=== PATIENT | female | born 1960 | race Caucasian/White ===

== ENCOUNTER → 2016-04-14 | Outpatient (CLI) | payer MEDICARE | LOC: RAD 12:50 | PROVIDERS: ATTEND Family Medicine | DX: E04.1 Nontoxic single thyroid nodule (principal) | CPT/HCPCS: 76536 ==

== ENCOUNTER → 2016-05-14 | Outpatient (CLI) | payer MEDICARE | LOC: RAD 13:41 | PROVIDERS: ATTEND Family Medicine | DX: E04.1 Nontoxic single thyroid nodule (principal) | CPT/HCPCS: 78013; A9512; Q9969 ==

== ENCOUNTER → 2016-10-02 | Outpatient (CLI) | payer MEDICARE ==
--- NOTE | 2016-10-02 12:08 | RADIOLOGY REPORT (SQ) ---
EXAM DESCRIPTION: LUMBAR SPINE COMPLETE COMPLETED DATE/TIME: 10/02/2016 11:53 am REASON FOR STUDY: CERVICAL RADICULOPATHY; DJD LUMBOSACRAL M51.37 OTHER INTERVERTEBRAL DISC DEGENERA TION, LUMBOSACRAL R M54.12 RADICULOPATHY, CERVICAL REGION COMPARISON: None. NUMBER OF VIEWS: Five views including obliques. TECHNIQUE: AP, lateral, oblique, and sacral radiographic images acquired of the lumbar spine. LIMITATIONS: None. FINDINGS: MINERALIZATION: Normal. SEGMENTATION: 6 non rib-bearing lumbar vertebrae. The last well-defined segment looks non sacralized and is considered L5 for the purposes of today's study. ALIGNMENT: Mild grade 1 listhesis at L4-5. VERTEBRAE: Maintained height. No fracture or worrisome bone lesion. DISCS: Preserved height. No significant osteophytes or end plate irregularity. POSTERIOR ELEMENTS: No pars defect. Lower lumbar facet degenerative overgrowth. HARDWARE: None in the spine. PARASPINAL SOFT TISSUES: Probable phleboliths in the paraspinal soft tissues. PELVIS: Sclerosis along the SI joints, presumably degenerative. OTHER: No other significant finding. IMPRESSION: Lumbar spondylosis as above. TECHNICAL DOCUMENTATION: JOB ID: [id number] [employer]- All Rights Reserved
--- NOTE | 2016-10-02 16:46 | RADIOLOGY REPORT (SQ) ---
EXAM DESCRIPTION: C SP 4 OR 5 VIEWS COMPLETED DATE/TIME: 10/02/2016 11:53 am REASON FOR STUDY: CERVICAL RADICULOPATHY; DJD LUMBOSACRAL M51.37 OTHER INTERVERTEBRAL DISC DEGENERA TION, LUMBOSACRAL R M54.12 RADICULOPATHY, CERVICAL REGION COMPARISON: None. NUMBER OF VIEWS: Five views including obliques. TECHNIQUE: AP, lateral, obliques and odontoid radiographic images acquired of the cervical spine. LIMITATIONS: None. FINDINGS: MINERALIZATION: Normal. SEGMENTATION: Normal. ALIGNMENT: Normal. VERTEBRAE: Maintained height. No fracture or worrisome bone lesion. DISCS: Multilevel disc space narrowing with osteophytes. POSTERIOR ELEMENTS: Pedicles and facets are intact. No posterior arch defects. Facet arthropathy is present. FORAMINA: Narrowed at the levels of maximal disc and facet disease. HARDWARE: None in the spine. PARASPINAL SOFT TISSUES: Normal. OTHER: No other significant finding. IMPRESSION: SPONDYLOSIS WITHOUT BONE LESION OR FRACTURE. TECHNICAL DOCUMENTATION: JOB ID: [id number] [employer]- All Rights Reserved
== END ==
LOC: OD 11:29
PROVIDERS: ATTEND Family Medicine
DX: M51.37 Other intervertebral disc degeneration, lumbosacral region (principal); M54.12 Radiculopathy, cervical region
CPT/HCPCS: 72050; 72110

== ENCOUNTER 2017-09-09 20:20 | Emergency (ER) | payer MEDICARE ==
[2017-09-09 20:27] VITALS: BP 171/106
[2017-09-09 21:14] LABS: APPEARANCE,URINE SLIGHTLY-CLOUDY; BILIRUBIN,URINE NEGATIVE (NEGATIVE); COLOR,URINE YELLOW; GLUCOSE, URINE 50 mg/dL (NEGATIVE); KETONES,URINE NEGATIVE (NEGATIVE); LEUKOCYTE ESTERASE,URINE TRACE (NEGATIVE); NITRITE,URINE NEGATIVE (NEGATIVE); PROTEIN,URINE 30 mg/dL (NEGATIVE); URINE SPECIFIC GRAVITY 1.026
--- NOTE | 2017-09-10 00:21 | ER Document Report ---
ED GI/ - General Chief Complaint: Flank Pain Stated Complaint: BACK AND SIDE PAIN Time Seen by Provider: 09/10/17 00:04 Notes: 56-year-old female complaining of right flank pain radiating down to the right lower quadrant. History of kidney stones. Patient states it feels like kidney stone. Has had some chills today but no fever. No other significant problems. Denies any fever or abdominal pain other than some right flank pain at this time. TRAVEL OUTSIDE OF THE [place] IN LAST 30 DAYS: No - HPI Patient complains to provider of: Dysuria, Flank pain - Related Data Allergies/Adverse Reactions: Penicillins Allergy (Verified 09/09/17 20:24) Past Medical History - General Information source: Patient - Social History Smoking Status: Smoker,Current Status Unk Frequency of alcohol use: None Drug Abuse: None Lives with: Family Family History: Reviewed & Not Pertinent Review of Systems - Review of Systems Constitutional: denies: Fever, Malaise, Weakness Cardiovascular: denies: Chest pain, Palpitations, Heart racing Respiratory: Wheezing. denies: Cough, Hurts to breathe, Short of breath Gastrointestinal: See HPI, Abdominal pain, Nausea. denies: Diarrhea, Vomiting Genitourinary: Dysuria, Flank pain. denies: Burning Musculoskeletal: Back pain. denies: Muscle pain, Leg swelling, Ankle swelling Skin: denies: Dryness, Lesions, Lumps, Rash Neurological/Psychological: denies: Confusion, Weakness, Numbness Physical Exam - Vital signs Vitals: Temp Pulse Resp BP Pulse Ox 99.0 F 94 16 171/106 H 99 09/09/17 20:25 09/09/17 20:25 09/09/17 20:25 09/09/17 20:25 09/09/17 20:25 Interpretation: Normal - General General appearance: Appears well, Alert - Respiratory Respiratory status: No respiratory distress Chest status: Nontender Breath sounds: Normal Chest palpation: Normal - Cardiovascular Rhythm: Regular Heart sounds: Normal auscultation Murmur: No - Abdominal Inspection: Normal Distension: No distension Bowel sounds: Normal Tenderness: Nontender Organomegaly: No organomegaly - Back Back: Normal, Nontender - Extremities General upper extremity: Normal inspection, Nontender, Normal color, Normal ROM , Normal temperature General lower extremity: Normal inspection, Nontender, Normal color, Normal ROM , Normal temperature, Normal weight bearing. No: Emy's sign - Neurological Cognition: Normal Orientation: AAOx4 - Skin Skin Temperature: Warm Skin Moisture: Dry Skin Color: Normal Course - Re-evaluation Re-evalutation: 09/10/17 02:08 Well-appearing female in no acute distress. With history of kidney stones and questionable infection did CT scan. CT scan shows questionable pathological subacute fracture in the right acetabulum but patient is denying any significant pain at this time other than right flank pain which does not appear to be anywhere near the right hip. Treating with some antibiotics, pain medication. Will recommend close follow-up - Vital Signs Vital signs: Temp Pulse Resp BP Pulse Ox 99.0 F 94 16 171/106 H 99 09/09/17 20:25 09/09/17 20:25 09/09/17 20:25 09/09/17 20:25 09/09/17 20:25 - Laboratory Result Diagrams: 09/10/17 00:34 09/10/17 00:34 Laboratory results interpreted by me: 09/09/17 09/10/17 20:40 00:34 Chloride 110 H BUN 21 H Glucose 148 H Urine Protein 30 H Urine Glucose (UA) 50 H Urine Blood LARGE H Urine Urobilinogen 2.0 H Ur Leukocyte Esterase TRACE H Discharge - Discharge Clinical Impression: Right flank pain Urinary tract infection Qualifiers: Urinary tract infection type: site unspecified Hematuria presence: with hematuria Qualified Code(s): N39.0 - Urinary tract infection, site not specified ; R31.9 - Hematuria, unspecified; R31.9 - Hematuria, unspecified Condition: Stable Disposition: HOME, SELF-CARE Instructions: Urinary Tract Infection ([facility]) Additional Instructions: Your CT scan shows an abnormal hip joint which could represent a fracture. Please follow-up with your regular doctor or orthopedic surgery for further evaluation. Follow-up information for orthopedic surgery has been provided. Please take your antibiotics. Symptoms are getting worse, you did develop high- grade fevers, worsening pain or other symptoms please return for repeat evaluation Prescriptions: Ciprofloxacin HCl [Cipro 500 mg Tablet] 500 mg PO BID #10 tablet Hydrocodone/Acetaminophen [[place] 5-325 mg Tabs (6 Tab/ER Disp)] 0 tab PO Q6H PRN #1 dspk PRN Reason: For Breakthrough Pain Referrals: REILLY KASPER PA-C [Primary Care Provider] - Follow up as needed
[2017-09-10 00:42] LABS: ABSOLUTE BASOPHILS # (AUTO) 0.1 10^3/uL (0.0-0.2); ABSOLUTE EOSINOPHILS # (AUTO) 0.1 10^3/uL (0.0-0.6); ABSOLUTE LYMPHOCYTES (AUTO) 2.4 10^3/uL (0.5-4.7); ABSOLUTE MONOCYTES (AUTO) 0.4 10^3/uL (0.1-1.4); ABSOLUTE NEUT (AUTO) 4.8 10^3/uL (1.7-8.2); BASOPHILS % (AUTO) 0.7 % (0-2); EOSINOPHILS % (AUTO) 0.9 % (0-6); HEMATOCRIT 39.3 % (36.0-47.0); HEMOGLOBIN 13.3 g/dL (12.0-15.5); LYMPHOCYTES % (AUTO) 31.3 % (13-45); MEAN CORPUSCULAR HEMOGLOBIN 31.9 pg (27.0-33.4); MEAN CORPUSCULAR HGB CONC 33.8 g/dL (32.0-36.0); MEAN CORPUSCULAR VOLUME 95 fl (80-97); MONOCYTES % (AUTO) 5.4 % (3-13); PLATELET COUNT 179 10^3/uL (150-450); RED BLOOD COUNT 4.16 10^6/uL (3.72-5.28); RED CELL DISTRIBUTION WIDTH 13.8 % (11.5-14.0); SEGMENTED NEUTROPHILS % (AUTO) 61.7 % (42-78); TOTAL CELLS COUNTED % (AUTO) 100 %; WHITE BLOOD COUNT 7.8 10^3/uL (4.0-10.5)
[2017-09-10 00:56] LABS: ANION GAP 11 (5-19); BLOOD UREA NITROGEN 21 mg/dL (7-20); CALCIUM 9.2 mg/dL (8.4-10.2); CARBON DIOXIDE 23 mmol/L (22-30); CHLORIDE 110 mmol/L (98-107); GLUCOSE 148 mg/dL (75-110); POTASSIUM 3.8 mmol/L (3.6-5.0); SODIUM 144.2 mmol/L (137-145)
--- NOTE | 2017-09-10 01:20 | RADIOLOGY REPORT (SQ) ---
EXAM DESCRIPTION: CT ABDOMEN PELVIS WITHOUT IV CONTRAST COMPLETED DATE/TME: 09/10/2017 00:20 CLINICAL HISTORY: 56 years Female, right flank pain Comparison: None. Technique: No contrast. Coronal and sagittal reformat. This exam was performed according to our departmental dose-optimization program, which includes automated exposure control, adjustment of the mA and/or kV according to patient size and/or use of iterative reconstruction technique.[facility]: Dose Right [facility]: CareDose [facility]: Dose Right [facility]: Teradose 4D [facility]: Sport Ngin LIMITATIONS: None Findings: 0.5 cm likely calcified granuloma or vessel on end artifact of the right mid lung field on title manager view. Left basilar atelectasis or scar. Cholecystectomy clips. Mild bilateral sacroiliac osteoarthritis. Indeterminate probably benign 2.7 cm lytic well-defined lesion with sclerotic margination and thin zone of transition of the anterior column of the right acetabulum with cortical defects involving the intra-articular acetabulum. Atherosclerosis. Colonic diverticulosis. Normal appendix. Punctate left inferior renal stone. Subcentimeter exophytic likely benign right renal cyst. Unenhanced lower thorax, abdominopelvic structures, and musculoskeleton appear otherwise grossly unremarkable. Impression: Nondisplaced pathologic fracture of a 2.7 cm probably benign lytic lesion of the right acetabulum, indeterminate age. Else, no acute findings of the abdomen or pelvis.
[2017-09-10] MEDS ORDERED: HYDROCODONE/ACETAMINOPHEN 5-325 MG TABLET PO PRN (01:31)
[2017-09-10] MEDS ORDERED: CIPROFLOXACIN HCL 500 MG TABLET PO ONE (01:32)
[2017-09-10] MEDS ORDERED: HYDROCODONE/ACETAMINOPHEN 5-325 MG (6 TAB/ER DISP) PO PRN (02:26)
[2017-09-10] MEDS ORDERED: KETOROLAC TROMETHAMINE 60 MG/2 ML SDV IM ONE (02:27)
== END 2017-09-10 02:55 | disposition home or self-care (01) ==
LOC: ER 20:20
DX: N39.0 Urinary tract infection, site not specified (principal); R31.9 Hematuria, unspecified; R10.9 Unspecified abdominal pain; R68.83 Chills (without fever); R06.2 Wheezing; M54.9 Dorsalgia, unspecified; M84.459A Pathological fracture, hip, unspecified, initial encounter for fracture; Z87.442 Personal history of urinary calculi; Z88.0 Allergy status to penicillin
CPT/HCPCS: 99284; 96372; 36415; 87086; 85025; 87088; 80048; 81001; 87186; 74176; A9270 ×3; J1885

== ENCOUNTER 2017-09-17 18:07 | Inpatient (IN) | payer MEDICARE ==
[2017-09-17] MEDS ORDERED: NALOXONE HCL INJ 2 MG/2 ML DISP.SYRIN ONE ×3 (18:12→18:18)
[2017-09-17] MEDS ORDERED: ETOMIDATE INJ/PF 20 MG/10 ML SDV IV ONE ×2 (18:16→18:35)
[2017-09-17] MEDS ORDERED: PROPOFOL 1,000 MG/100 ML INFUS..BTL IV ONE (18:30)
[2017-09-17] MEDS ORDERED: NALOXONE HCL INJ 2 MG/2 ML DISP.SYRIN IV ONE (18:35)
[2017-09-17 18:41] LABS: ABSOLUTE EOSINOPHILS # (AUTO) 0.1 10^3/uL (0.0-0.6); ABSOLUTE LYMPHOCYTES (AUTO) 2.3 10^3/uL (0.5-4.7); ABSOLUTE MONOCYTES (AUTO) 0.3 10^3/uL (0.1-1.4); ABSOLUTE NEUT (AUTO) 6.8 10^3/uL (1.7-8.2); BASOPHILS % (AUTO) 0.4 % (0-2); EOSINOPHILS % (AUTO) 0.6 % (0-6); HEMATOCRIT 43.1 % (36.0-47.0); HEMOGLOBIN 14.5 g/dL (12.0-15.5); LYMPHOCYTES % (AUTO) 24.1 % (13-45); MEAN CORPUSCULAR HGB CONC 33.6 g/dL (32.0-36.0); MEAN CORPUSCULAR VOLUME 95 fl (80-97); MONOCYTES % (AUTO) 2.8 % (3-13); PLATELET COUNT 206 10^3/uL (150-450); RED BLOOD COUNT 4.52 10^6/uL (3.72-5.28); SEGMENTED NEUTROPHILS % (AUTO) 72.1 % (42-78); TOTAL CELLS COUNTED % (AUTO) 100 %; WHITE BLOOD COUNT 9.4 10^3/uL (4.0-10.5)
[2017-09-17 18:58] LABS: ALANINE AMINOTRANSFERASE 23 U/L (9-52); ALBUMIN 4.1 g/dL (3.5-5.0); ALCOHOL 156 mg/dL (NONE DETECTED); ALKALINE PHOSPHATASE 135 U/L (38-126); ANION GAP 18 (5-19); ASPARTATE AMINO TRANSFERASE 15 U/L (14-36); BILIRUBIN,DIRECT 0.3 mg/dL (0.0-0.4); BILIRUBIN,TOTAL 0.3 mg/dL (0.2-1.3); BLOOD UREA NITROGEN 12 mg/dL (7-20); CALCIUM 9.6 mg/dL (8.4-10.2); CARBON DIOXIDE 24 mmol/L (22-30); CHLORIDE 107 mmol/L (98-107); GLUCOSE 224 mg/dL (75-110); POTASSIUM 3.8 mmol/L (3.6-5.0); SODIUM 148.5 mmol/L (137-145); TOTAL PROTEIN 7.2 g/dL (6.3-8.2)
[2017-09-17 18:59] LABS: ACETAMINOPHEN < 10 ug/mL (10-30); SALICYLATE < 1.0 mg/dL (2.0-20.0)
[2017-09-17 19:01] LABS: APPEARANCE,URINE CLEAR; BILIRUBIN,URINE NEGATIVE (NEGATIVE); COLOR,URINE YELLOW; GLUCOSE, URINE >=500 mg/dL (NEGATIVE); KETONES,URINE TRACE mg/dL (NEGATIVE); LEUKOCYTE ESTERASE,URINE NEGATIVE (NEGATIVE); NITRITE,URINE POSITIVE (NEGATIVE); PROTEIN,URINE 30 mg/dL (NEGATIVE); URINE SPECIFIC GRAVITY 1.011; UROBILINOGEN,URINE NEGATIVE mg/dL (<2.0)
--- NOTE | 2017-09-17 19:10 | RADIOLOGY REPORT (SQ) ---
EXAM DESCRIPTION: CHEST SINGLE VIEW COMPLETED DATE/TIME: 09/17/2017 6:57 pm REASON FOR STUDY: intubation COMPARISON: None. EXAM PARAMETERS: NUMBER OF VIEWS: One view TECHNIQUE: Single supine frontal radiograph of the chest. RADIATION DOSE: N/A LIMITATIONS: None. FINDINGS: TEMPORARY SUPPORT DEVICES:ETT in expected location. NG tube courses below the left herman-d iaphragm in to the stomach. LUNGS AND PLEURA: There is an 8 mm nodularity at the right perihilar region. No consolidation. No s izable pleural effusion or pneumothorax on this supine view. MEDIASTINUM AND HILAR STRUCTURES: Contour normal. HEART AND VASCULAR STRUCTURES: Heart size normal. No overt vascular congestion. BONES: No acute findings. IMPRESSION: 8 mm nodularity at the right perihilar region. This can be better evaluated with [facility] olga CT chest. Support devices in expected locations. TECHNICAL DOCUMENTATION: JOB ID: [id number]-64 2010 [employer]- All Rights Reserved Reading location - IP/workstation name: [email or web address]
[2017-09-17] MEDS ORDERED: NORMAL SALINE 1000 ML 1,000 ML IV PRN (19:19)
[2017-09-17] MEDS ORDERED: SUCCINYLCHOLINE CHLORIDE INJ 200 MG/10 ML VIAL IV ONE (19:19)
[2017-09-17] MEDS ORDERED: PROPOFOL 1,000 MG/100 ML INFUS..BTL IV PRN (19:20)
[2017-09-17] MEDS ORDERED: KETAMINE HCL INJ 500 MG/10 ML VIAL ONE (19:23)
[2017-09-17] MEDS ORDERED: MIDAZOLAM HCL 50 MG/100 ML RTUINJ ONE (19:28)
[2017-09-17 20:28] LABS: ARTERIAL BLOOD BASE EXCESS -4.1 mmol/L; ARTERIAL BLOOD H2CO3 1.21 mmol/L (1.05-1.35); ARTERIAL BLOOD HCO3 21.3 mmol/L (20-26); ARTERIAL BLOOD O2 SATURATION 95.7 % (94-98); ARTERIAL BLOOD PCO2 40.2 mmHg (35-45); ARTERIAL BLOOD PH 7.34 (7.35-7.45); ARTERIAL BLOOD PO2 83.1 mmHg (80-100); ARTERIAL BLOOD TOTAL CO2 22.5 mmol/L (21-25)
[2017-09-17 20:33] LABS: ARTERIAL BLOOD FIO2 40%
[2017-09-17 21:13] LABS: URINE AMPHETAMINES SCREEN NEGATIVE; URINE BARBITURATES SCREEN NEGATIVE; URINE BENZODIAZEPINES SCREEN UNCONFIRMED POSITIVE; URINE COCAINE SCREEN NEGATIVE; URINE MARIJUANA (THC) SCREEN NEGATIVE; URINE METHADONE SCREEN NEGATIVE; URINE PHENCYCLIDINE SCREEN NEGATIVE
--- NOTE | 2017-09-17 21:44 | RADIOLOGY REPORT (SQ) ---
EXAM DESCRIPTION: CT HEAD WITHOUT COMPLETED DATE/TIME: 09/17/2017 9:33 pm REASON FOR STUDY: ams COMPARISON: None. TECHNIQUE: Axial images acquired through the brain without intravenous contrast. Images reviewed wi th bone, brain and subdural windows. Additional sagittal and coronal reconstructions were generated. Images stored on PACS. All CT scanners at this facility use dose modulation, iterative reconstruction, and/or weight based d osing when appropriate to reduce radiation dose to as low as reasonably achievable (ALARA). [facility]: Dose Right [facility]: CareDose [facility]: Dose Right [facility]: Teradose 4D [facility]: [employer] RADIATION DOSE: CT Rad equipment meets quality standard of care and radiation dose reduction techniq ues were employed. CTDIvol: 53.2 mGy. DLP: 964 mGy-cm. mGy. LIMITATIONS: None. FINDINGS: VENTRICLES: Normal size and contour. CEREBRUM: No masses. No hemorrhage. No midline shift. No evidence for acute infarction. Normal gra y/white matter differentiation. No areas of low density in the white matter. CEREBELLUM: No masses. No hemorrhage. No alteration of density. No evidence for acute infarction. EXTRAAXIAL SPACES: No fluid collections. No masses. ORBITS AND GLOBE: No intra- or extraconal masses. Normal contour of globe without masses. CALVARIUM: No fracture. PARANASAL SINUSES: Scattered ethmoid airspace opacities and foamy secretions within the nasopharynx a re not an unexpected finding in the setting of intubation. SOFT TISSUES: No mass or hematoma. OTHER: No other significant finding. IMPRESSION: NORMAL BRAIN CT WITHOUT CONTRAST. EVIDENCE OF ACUTE STROKE: NO. COMMENT: Quality ID # [id number]: Final reports with documentation of one or more dose reduction techniques (e.g., Automated exposure control, adjustment of the mA and/or kV according to patient size, use of iterative reconstruction technique) TECHNICAL DOCUMENTATION: JOB ID: [id number] [employer]- All Rights Reserved Reading location - IP/workstation name: [email or web address]
[2017-09-17] MEDS ORDERED: LIDOCAINE 1% INJ-PF (10 MG/ML) 30 ML SDV INJ ONE (22:20)
--- NOTE | 2017-09-17 22:20 | ER Document Report ---
ED General - General Chief Complaint: Overdose Stated Complaint: POSSIBLE OVERDOSE Time Seen by Provider: 09/17/17 18:31 Mode of Arrival: Medic Notes: Patient brought to the emergency department by EMS for possible overdose. EMS states that the patient was found unresponsive with a bottle of oxycodone next to her. She does have laceration to her left wrist. Patient's son contacted EMS. He states that that she slit her wrist tonight. She had been drinking alcohol. She drank 1/5 of rum. He found her unresponsive. On arrival to the ED , patient has GCS of 3. Given 6mg of narcan without change. Intubation performed. TRAVEL OUTSIDE OF THE [place] IN LAST 30 DAYS: No - HPI Onset: Just prior to arrival Onset/Duration: Sudden Associated symptoms: None Similar symptoms previously: No Recently seen / treated by doctor: No - Related Data Allergies/Adverse Reactions: Penicillins Allergy (Verified 09/17/17 18:18) Past Medical History - Social History Smoking Status: Current Every Day Smoker Frequency of alcohol use: Social Family History: Reviewed & Not Pertinent Patient has suicidal ideation: Yes Patient has homicidal ideation: Yes - Past Medical History Cardiac Medical History: Reports: Hx Hypertension Endocrine Medical History: Reports: Hx Diabetes Mellitus Type 2 Renal/ Medical History: Denies: Hx Peritoneal Dialysis Review of Systems - Review of Systems -: Yes ROS unobtainable due to patient's medical condition Physical Exam - Vital signs Vitals: Resp Pulse Ox 17 97 09/17/17 18:10 09/17/17 18:10 Interpretation: Normal - Notes Notes: PHYSICAL EXAMINATION: GENERAL: Unresponsive. GCS of 3. HEAD: Atraumatic EYES: Pupils 2mm and equal round and reactive to light. ENT: Nares patent, oropharynx clear without exudates. Moist mucous membranes. NECK: Normal range of motion, supple without lymphadenopathy LUNGS: Breath sounds clear to auscultation bilaterally and equal. No wheezes rales or rhonchi. HEART: Regular rate and rhythm without murmurs ABDOMEN: Soft, nontender, nondistended abdomen. No guarding, no rebound. No masses appreciated. Female : deferred Musculoskeletal: Normal range of motion, no pitting or edema. No cyanosis. NEUROLOGICAL: Corneal and gag reflexes. Moving all 4 extremities. SKIN: 4cm laceration to the left wrist. 3cm laceration to left wrist. Course - Re-evaluation Re-evalutation: 09/17/17 23:34 Labs and imaging obtained. CT of the head was done and does not show an acute process. No signs of infection found. Patient's EtOH level is elevated. No signs of opiates in the patient's urine. Patient's urine is significant for benzos. I contacted the hospitalist for admission. Patient is currently intubated and stable. 09/18/17 00:13 Patient has 2 lacerations to the left wrist. One is 4cm the other is 3cm. Both superficial. Wounds sutured. No complications. - Vital Signs Vital signs: Temp Pulse Resp BP Pulse Ox 19 125/76 100 09/18/17 00:01 09/18/17 00:01 09/18/17 00:01 - Laboratory Result Diagrams: 09/17/17 18:14 09/17/17 18:14 Laboratory results interpreted by me: 09/17/17 09/17/17 09/17/17 18:14 18:14 18:44 Monocytes % 2.8 L ABG pH Sodium 148.5 H Glucose 224 H Alkaline Phosphatase 135 H Urine Protein 30 H Urine Glucose (UA) >=500 H Urine Ketones TRACE H Urine Nitrite POSITIVE H Salicylates < 1.0 L Acetaminophen < 10 L 09/17/17 19:41 Monocytes % ABG pH 7.34 L Sodium Glucose Alkaline Phosphatase Urine Protein Urine Glucose (UA) Urine Ketones Urine Nitrite Salicylates Acetaminophen - EKG Interpretation by Me Additional EKG results interpreted by me: 09/17/17 22:27 EKG: Ventricular rate 79, WI interval 84, QRS duration 88, QTc 505, normal sinus rhythm, no ischemic changes. Procedures - Intubation Orotracheal Airway evaluation: Normal anatomy Mallampati Classification: Class 1 Medications: Etomidate, Succinylcholine Intubation method: Orotracheal Blade type: Natali, Other - glidescope Blade size: 3 Equipment used: Glidescope ETT size: 7.5 ETT secured at: Gums Breath Sounds after Intubation: Equal End tidal CO2 confirmed: Yes Post Intubation Xray: Yes Intubation Complications: No complications - Laceration/Wound Repair Left Wrist Wound length (cm): 4 - second laceration is 3cm in length Wound's Depth, Shape: Superficial Laceration pre-procedure: Sterile drapes applied, Shur-Clens applied Anesthetic type: 1% Lidocaine Volume Anesthetic (mLs): 10 Wound explored: Clean, No foreign body removed Irrigated w/ Saline (mLs): 500 Wound Debrided: Minimal Wound Repaired With: Sutures Suture Size/Type: 4:0 Number of Sutures: 18 Layer Closure?: No Post-procedure NV exam normal: Yes Complications: No Critical Care Note - Critical Care Note Total time excluding time spent on procedures (mins): 30 Discharge - Discharge Clinical Impression: Altered mental status Qualifiers: Altered mental status type: unspecified Qualified Code(s): R41.82 - Altered mental status, unspecified Condition: Good Disposition: ADMITTED INPATIENT Admitting Provider: Hospitalist Unit Admitted: ICU
[2017-09-17] MEDS ORDERED: GLUCAGON,HUMAN RECOMB 1 MG INJ SUBCUT PRN (22:37)
[2017-09-17] MEDS ORDERED: DEXTROSE 40% GEL 15 GM TUBE PO PRN ×4 (22:37→22:43)
[2017-09-17] MEDS ORDERED: DEXTROSE 50%-WATER 25 GM/50 ML DISP.SYRIN IV PRN ×4 (22:37→22:43)
[2017-09-17] MEDS ORDERED: INSULIN LISPRO 100 UNIT/ML 3 ML VIAL SUBCUT PRN (22:43)
[2017-09-17] MEDS ORDERED: GLUCAGON,HUMAN RECOMB 1 MG INJ IM PRN (22:43)
--- NOTE | 2017-09-17 22:59 | EKG REPORT ---
SEVERITY:- BORDERLINE ECG - SINUS OR ECTOPIC ATRIAL RHYTHM SHORT OK INTERVAL, ACCELERATED AV CONDUCTION BORDERLINE PROLONGED QT INTERVAL : Confirmed by: Safia Ford MD 17-Sep-2017 22:59:09
[2017-09-17] MEDS: NORMAL SALINE 1000 ML 1,000 ML IV PRN (23:16)
--- NOTE | 2017-09-17 23:27 | PDOC H&P ---
History of Present Illness Admission Date/PCP: 09/17/17 22:30 REILLY KASPER PA-C History of Present Illness: YAYO WIN is a 56 year old female patient with past medical history of bipolar disorder, hypertension and diabetes mellitus by EMS unresponsive. Since patient is intubated and on mechanical ventilation she is not source of history but history is obtained from ER attending and her son who is in the room during my encounter. Patient found unresponsive and sliced her left wrist at 3 places with suicidal intention. She drank 1/5 of rum and empty bottle of Percocet which was filled August 29. Patient was given several doses of Narcan but failed to respond and patient emergently intubated to protect her airway. Patient is in grief recently lost her son. Further detailed history and review of systems unobtainable Past Medical History Cardiac Medical History: Reports: Hypertension Endocrine Medical History: Reports: Diabetes Mellitus Type 2 Psychiatric Medical History: Reports: Depression Social History Smoking Status: Current Every Day Smoker Frequency of Alcohol Use: Heavy Hx Recreational Drug Use: No Hx Prescription Drug Abuse: Yes Family History Family History: Reviewed & Not Pertinent, Hypertension, Other - Mental illness Parental Family History Reviewed: Yes Children Family History Reviewed: Yes Sibling(s) Family History Reviewed.: Yes Medication/Allergy Home Medications: Ciprofloxacin HCl [Cipro 500 mg Tablet] 500 mg PO BID #10 tablet 09/10/17 Hydrocodone/Acetaminophen [[place] 5-325 mg Tabs (6 Tab/ER Disp)] 0 tab PO Q6H PRN #1 dspk 09/10/17 Allergies/Adverse Reactions: Penicillins Allergy (Verified 09/17/17 18:18) Review of Systems ROS unobtainable: Due to mental status Physical Exam Vital Signs: Temp Pulse Resp BP Pulse Ox 14 105/64 97 09/17/17 22:16 09/17/17 22:16 09/17/17 22:16 General appearance: PRESENT: no acute distress Head exam: PRESENT: atraumatic, normocephalic Respiratory exam: PRESENT: clear to auscultation kelechi. ABSENT: rales, rhonchi, wheezes Cardiovascular exam: PRESENT: tachycardia GI/Abdominal exam: PRESENT: normal bowel sounds, soft. ABSENT: distended, guarding, mass, organolmegaly, rebound, tenderness Extremities exam: PRESENT: other - Laceration of three places on her left wrist Results Impressions: Chest X-Ray 09/17/17 18:32 IMPRESSION: 8 mm nodularity at the right perihilar region. This can be better evaluated with dedicated CT chest. Support devices in expected locations. Head CT 09/17/17 18:32 IMPRESSION: NORMAL BRAIN CT WITHOUT CONTRAST. EVIDENCE OF ACUTE STROKE: NO. Assessment & Plan - Diagnosis (1) Unresponsive Is this a current diagnosis for this admission?: Yes Plan: Patient found unresponsive after she intoxicated with alcohol combined with benzodiazepine. Patient intubated and on mechanical ventilation to protect her airway. (2) Suicidal intent Is this a current diagnosis for this admission?: Yes Plan: Patient has underlying bipolar disorder and grief after recently lost her son. We will consult psychiatry. (3) Hypertension Qualifiers: Hypertension type: essential hypertension Qualified Code(s): I10 - Essential (primary) hypertension Is this a current diagnosis for this admission?: Yes Plan: We will continue her home medication (4) Diabetes mellitus type 2 in nonobese Is this a current diagnosis for this admission?: Yes Plan: It has been started on sliding scale.
[2017-09-18] MEDS ORDERED: PROPOFOL 1,000 MG/100 ML INFUS..BTL IV ONE (00:51)
--- NOTE | 2017-09-18 02:43 | RADIOLOGY REPORT (SQ) ---
EXAM DESCRIPTION: XR CHEST 1 VIEW COMPLETED DATE/TME: 09/18/2017 02:23 CLINICAL HISTORY: cental line placement COMPARISON: 09/18/2019 FINDINGS: Single frontal view of the chest. Endotracheal tube with tip 4 cm above the boyd. NG tube with tip below the diaphragm. Left subclavian central venous catheter with tip overlying the expected region of the SVC. Leads overlie the chest. Low lung volumes. No consolidation, pneumothorax, or pleural effusion. Osseous structures are stable. Upper abdominal soft tissues are unremarkable. IMPRESSION: 1. Left subclavian central venous catheter with tip in the SVC. Otherwise stable appearance of the chest.
[2017-09-18] MEDS ORDERED: NORMAL SALINE INJ/PF 0.9% 10 ML SDV IV PRN (03:22)
[2017-09-18] MEDS: PROPOFOL 1,000 MG/100 ML INFUS..BTL IV PRN ×5 (03:59→22:42)
[2017-09-18] MEDS: MIDAZOLAM HCL 50 MG/100 ML RTUINJ IV PRN ×4 (04:01→22:42)
--- NOTE | 2017-09-18 05:10 | OPERATIVE REPORT E ---
Operative Report NAME: YAYO WIN : 1960 AGE: 56Y DATE OF SURGERY: 09/18/2017 ROOM: 601 PREOPERATIVE DIAGNOSIS: POOR VEINS FOR INTRAVENOUS ACCESS. POSTOPERATIVE DIAGNOSIS: POOR VEINS FOR INTRAVENOUS ACCESS. PROCEDURE: Placement of left subclavian vein triple-lumen catheter. SURGEON: JEMIMA MARQUEZ M.D. ANESTHESIA: Local. INDICATION: This is a 56-year-old female, who is intubated and needed IV access. The nurses have been trying to place a second IV and the first IV is tenuous at best. DESCRIPTION OF PROCEDURE: After adequate IV sedation with propofol, the left upper neck and chest were then prepped and draped in the usual sterile fashion. The patient was placed in Trendelenburg position. The left subclavian vein was then punctured and guidewire passed through the needle and towards the area of the superior vena cava. Insertion site was then dilated and a triple-lumen catheter inserted through the guidewire towards the superior vena cava to a distance of about 17 cm. All 3 ports aspirated blood easily and instilled saline easily. The catheter was then anchored to the skin with 3-0 silk and Biopatch placed that insertion site. Transparent sterile dressing was placed the Biopatch and catheter. The patient tolerated the procedure well. Chest x-ray will be performed to confirm placement and make sure there is no pneumothorax. DICTATING PHYSICIAN: JEMIMA MARQUEZ M.D. [id number] PHY#: [id number] ID: [id number] JOB#: [id number] ACCT: [id number] cc:JEMIMA MARQUEZ M.D. >
[2017-09-18 06:24] LABS: ABSOLUTE MONOCYTES (AUTO) 0.5 10^3/uL (0.1-1.4); ABSOLUTE NEUT (AUTO) 5.5 10^3/uL (1.7-8.2); BASOPHILS % (AUTO) 0.4 % (0-2); EOSINOPHILS % (AUTO) 0.4 % (0-6); LYMPHOCYTES % (AUTO) 24.4 % (13-45); MEAN CORPUSCULAR HEMOGLOBIN 32.1 pg (27.0-33.4); MEAN CORPUSCULAR HGB CONC 33.9 g/dL (32.0-36.0); MEAN CORPUSCULAR VOLUME 95 fl (80-97); MONOCYTES % (AUTO) 5.7 % (3-13); PLATELET COUNT 159 10^3/uL (150-450); RED BLOOD COUNT 3.58 10^6/uL (3.72-5.28); RED CELL DISTRIBUTION WIDTH 13.6 % (11.5-14.0); SEGMENTED NEUTROPHILS % (AUTO) 69.1 % (42-78); TOTAL CELLS COUNTED % (AUTO) 100 %
[2017-09-18 06:25] LABS: ARTERIAL BLOOD BASE EXCESS 0 mmol/L; ARTERIAL BLOOD FIO2 30%; ARTERIAL BLOOD H2CO3 1.06 mmol/L (1.05-1.35); ARTERIAL BLOOD HCO3 23.6 mmol/L (20-26); ARTERIAL BLOOD O2 SATURATION 95.6 % (94-98); ARTERIAL BLOOD PCO2 35.1 mmHg (35-45); ARTERIAL BLOOD PH 7.45 (7.35-7.45); ARTERIAL BLOOD PO2 74.7 mmHg (80-100); ARTERIAL BLOOD TOTAL CO2 24.7 mmol/L (21-25); HEMOGLOBIN 11.5 g/dL (12.0-15.5)
[2017-09-18 06:32] LABS: ALANINE AMINOTRANSFERASE 24 U/L (9-52); ALBUMIN 2.8 g/dL (3.5-5.0); ALKALINE PHOSPHATASE 109 U/L (38-126); ANION GAP 8 (5-19); ASPARTATE AMINO TRANSFERASE 13 U/L (14-36); BILIRUBIN,DIRECT 0.3 mg/dL (0.0-0.4); BILIRUBIN,TOTAL 0.3 mg/dL (0.2-1.3); BLOOD UREA NITROGEN 11 mg/dL (7-20); CALCIUM 8.3 mg/dL (8.4-10.2); CARBON DIOXIDE 25 mmol/L (22-30); CHLORIDE 113 mmol/L (98-107); GLUCOSE 119 mg/dL (75-110); POTASSIUM 3.7 mmol/L (3.6-5.0); TOTAL PROTEIN 5.4 g/dL (6.3-8.2)
[2017-09-18] MEDS: NORMAL SALINE 1000 ML 1,000 ML IV PRN ×2 (08:05→15:52)
[2017-09-18] MEDS: PANTOPRAZOLE SODIUM 40 MG VIAL IV SCH (09:04)
[2017-09-18] MEDS: ENOXAPARIN SODIUM INJ 40 MG/0.4 ML DISP.SYRIN SUBCUT SCH (09:04)
[2017-09-18] MEDS ORDERED: LEVALBUTEROL HCL NEB 0.63 MG/3 ML AMPUL NEB PRN (11:41)
[2017-09-18] MEDS ORDERED: NYSTATIN CREAM 15 GM TP ONE (12:30)
[2017-09-18] MEDS: IPRATROPIUM/ALBUTEROL 0.5-2.5 MG/3 ML AMPUL NEB SCH ×2 (14:02→20:16)
--- NOTE | 2017-09-18 15:30 | PDOC CONSULTATION ---
Consultation Consult Date: 09/18/17 Attending physician:: PAYTON SINGH Consult reason:: Respiratory failure acute History of Present Illness Admission Date/PCP: 09/17/17 22:30 REILLY KASPER PA-C History of Present Illness: YAYO WIN is a 56 year old female,was found unresponsive by baker paint was subsequently intubated apparently she had taken the balance of her Percocets that were in a bottle along with a Coleman of alcohol she has had several episodes in the past with attempted suicides due to bipolar disorder and depression this is was exacerbated by the recent loss of her son stated above the patient is currently intubated and sedated in the ICU. Past Medical History Cardiac Medical History: Reports: Hypertension Endocrine Medical History: Reports: Diabetes Mellitus Type 2 Psychiatric Medical History: Reports: Depression - situational Social History Information Source: Relative, [facility] Records Smoking Status: Smoker,Current Status Unk Passive smoke exposure as: Both Frequency of Alcohol Use: Heavy Hx Recreational Drug Use: No - unable to answer Drugs: None Hx Prescription Drug Abuse: No Have you had any respiratory illnesses as a child?: No Have you travelled outside of [place] in the past 12 months?: No Family History Parental Family History Reviewed: No Children Family History Reviewed: No Sibling(s) Family History Reviewed.: No Medication/Allergy Home Medications: Gabapentin [Neurontin 400 mg Capsule] 800 mg PO Q6 09/18/17 Lisinopril/Hydrochlorothiazide [Lisinopril-Hctz 20-12.5 mg Tab] 1 tab PO Q12 04/07 Metformin HCl [Glucophage 500 mg Tablet] 1,000 mg PO BIDBS 09/18/17 Allergies/Adverse Reactions: Penicillins Allergy (Verified 09/17/17 18:18) Review of Systems ROS unobtainable: Due to endotracheal tube, Due to mental status Physical Exam Vital Signs: Temp Pulse Resp BP Pulse Ox 98.8 F 77 14 139/86 H 99 09/18/17 06:12 09/18/17 01:01 09/18/17 06:12 09/18/17 06:12 09/18/17 06:12 Intake & Output 09/17/17 09/18/17 09/19/17 06:59 06:59 06:59 Intake Total 0 Output Total 185 Balance -185 Weight 89.3 kg General appearance: PRESENT: no acute distress, disheveled, obese, well- developed, well-nourished. ABSENT: cooperative Head exam: PRESENT: normocephalic Eye exam: PRESENT: conjunctiva pale. ABSENT: EOMI, nystagmus, periorbital swelling, scleral icterus Mouth exam: PRESENT: dry mucosa, neck supple, tongue midline, other - ET tube in place Neck exam: ABSENT: carotid bruit, JVD, lymphadenopathy, thyromegaly, tracheal deviation, tracheostomy Respiratory exam: PRESENT: decreased breath sounds, prolonged expiratory phas, rhonchi, unlabored. ABSENT: retraction, stridor Cardiovascular exam: PRESENT: RRR, +S1, +S2 Pulses: PRESENT: normal radial pulses GI/Abdominal exam: PRESENT: hypoactive bowel sounds, soft Gentrourinary exam: PRESENT: indwelling catheter Extremities exam: ABSENT: clubbing, joint swelling, pedal edema Musculoskeletal exam: ABSENT: ambulatory, deformity, dislocation Neurological exam: ABSENT: awake Skin exam: PRESENT: dry, warm Results Laboratory Results: 09/18/17 06:00 09/18/17 06:00 09/18/17 09/18/17 09/18/17 06:00 06:00 06:00 WBC 8.0 RBC 3.58 L Hgb 11.5 L D Hct 34.0 L MCV 95 MCH 32.1 MCHC 33.9 RDW 13.6 Plt Count 159 Seg Neutrophils % 69.1 Lymphocytes % 24.4 Monocytes % 5.7 Eosinophils % 0.4 Basophils % 0.4 Absolute Neutrophils 5.5 Absolute Lymphocytes 2.0 Absolute Monocytes 0.5 Absolute Eosinophils 0.0 Absolute Basophils 0.0 Carbonic Acid 1.06 HCO3/H2CO3 Ratio 22:1 ABG pH 7.45 ABG pCO2 35.1 ABG pO2 74.7 L ABG HCO3 23.6 ABG O2 Saturation 95.6 ABG Base Excess 0 FiO2 30% Sodium 146.0 H Potassium 3.7 Chloride 113 H Carbon Dioxide 25 Anion Gap 8 BUN 11 Creatinine 0.67 Est GFR ( Amer) > 60 Est GFR (Non-Af Amer) > 60 Glucose 119 H Calcium 8.3 L Total Bilirubin 0.3 AST 13 L ALT 24 Alkaline Phosphatase 109 Total Protein 5.4 L Albumin 2.8 L Impressions: Head CT 09/17/17 18:32 IMPRESSION: NORMAL BRAIN CT WITHOUT CONTRAST. EVIDENCE OF ACUTE STROKE: NO. Chest X-Ray 09/18/17 02:23 IMPRESSION: 1. Left subclavian central venous catheter with tip in the SVC. Otherwise stable appearance of the chest. Assessment & Plan - Diagnosis (1) Altered mental status Qualifiers: Altered mental status type: unspecified Qualified Code(s): R41.82 - Altered mental status, unspecified Is this a current diagnosis for this admission?: Yes Plan: Currently unresponsive during sedation vacation will continue to support (2) Hypertension Qualifiers: Hypertension type: essential hypertension Qualified Code(s): I10 - Essential (primary) hypertension Is this a current diagnosis for this admission?: Yes Plan: Stable at this time (3) Suicidal intent Is this a current diagnosis for this admission?: Yes Plan: Several prior attempts post before this 1 exacerbated by this her son's recent - Time Total Critical Time (Minutes): 55
[2017-09-18] MEDS ORDERED: NORMAL SALINE 1000 ML 1,000 ML IV ONE (16:00)
[2017-09-18] MEDS ORDERED: LISINOPRIL 10 MG TABLET GT ONE (17:45)
[2017-09-18] MEDS ORDERED: HYDROCHLOROTHIAZIDE 12.5 MG CAPSULE GT ONE (17:45)
--- NOTE | 2017-09-18 18:12 | PDOC PROGRESS REPORT ---
Subjective Progress Note for:: 09/18/17 Subjective:: No adverse events overnight. She remains sedated and intubated. Her vital signs been stable. She is actually a little bit hypertensive today and we have restarted some of her medicines down the OG tube. She has been stable on the ventilator for a respiratory standpoint. Reason For Visit: UNRESPONSIVE Physical Exam Vital Signs: Temp Pulse Resp BP Pulse Ox 99.9 F 63 17 150/88 H 99 09/18/17 15:00 09/18/17 14:02 09/18/17 15:00 09/18/17 14:42 09/18/17 16:46 Intake & Output 09/17/17 09/18/17 09/19/17 06:59 06:59 06:59 Intake Total 0 Output Total 185 345 Balance -185 -345 Weight 89.3 kg General appearance: PRESENT: no acute distress, obese, well-developed, other - Dated, intubated Respiratory exam: PRESENT: clear to auscultation kelechi. ABSENT: rales, rhonchi, wheezes Cardiovascular exam: PRESENT: RRR. ABSENT: diastolic murmur, rubs, systolic murmur GI/Abdominal exam: PRESENT: normal bowel sounds, soft. ABSENT: distended, guarding, mass, organolmegaly, rebound, tenderness Extremities exam: ABSENT: clubbing, pedal edema Musculoskeletal exam: PRESENT: normal inspection. ABSENT: deformity Neurological exam: PRESENT: other - Sedated, intubated Results Laboratory Results: 09/18/17 06:00 09/18/17 06:00 09/18/17 09/18/17 09/18/17 06:00 06:00 06:00 WBC 8.0 RBC 3.58 L Hgb 11.5 L D Hct 34.0 L MCV 95 MCH 32.1 MCHC 33.9 RDW 13.6 Plt Count 159 Seg Neutrophils % 69.1 Lymphocytes % 24.4 Monocytes % 5.7 Eosinophils % 0.4 Basophils % 0.4 Absolute Neutrophils 5.5 Absolute Lymphocytes 2.0 Absolute Monocytes 0.5 Absolute Eosinophils 0.0 Absolute Basophils 0.0 Carbonic Acid 1.06 HCO3/H2CO3 Ratio 22:1 ABG pH 7.45 ABG pCO2 35.1 ABG pO2 74.7 L ABG HCO3 23.6 ABG O2 Saturation 95.6 ABG Base Excess 0 FiO2 30% Sodium 146.0 H Potassium 3.7 Chloride 113 H Carbon Dioxide 25 Anion Gap 8 BUN 11 Creatinine 0.67 Est GFR ( Amer) > 60 Est GFR (Non-Af Amer) > 60 Glucose 119 H Calcium 8.3 L Total Bilirubin 0.3 AST 13 L ALT 24 Alkaline Phosphatase 109 Total Protein 5.4 L Albumin 2.8 L Impressions: Head CT 09/17/17 18:32 IMPRESSION: NORMAL BRAIN CT WITHOUT CONTRAST. EVIDENCE OF ACUTE STROKE: NO. Chest X-Ray 09/18/17 02:23 IMPRESSION: 1. Left subclavian central venous catheter with tip in the SVC. Otherwise stable appearance of the chest. Assessment & Plan - Diagnosis (1) Intentional drug overdose Qualifiers: Encounter type: initial encounter Qualified Code(s): T50.902A - Poisoning by unspecified drugs, medicaments and biological substances, intentional self- harm, initial encounter Is this a current diagnosis for this admission?: Yes Plan: She was found next to an empty bottle of oxycodone, she had benzodiazepines in her system, and she also was positive for alcohol. She had to lacerations on her left wrist, neither of which was deep enough to have a blood vessel. She is on the ventilator because she could not protect her airway. We will let the substances wash out of her system, and then will try to wean her from the vent and extubate her. Once that is done, she will have to be involuntarily committed. - Time Time Spent with patient: 35 or more minutes Total Critical Time (Minutes): 35
[2017-09-18] MEDS ORDERED: HYDROCHLOROTHIAZIDE 25 MG TABLET ONE (18:18)
[2017-09-18] MEDS: ACETAMINOPHEN SOLN 325 MG/10.15 ML UDCUP GT PRN (18:51)
[2017-09-18] MEDS ORDERED: CEFTRIAXONE 1 GM/D5W RTU 1 GM/50 ML RTUPB IV ONE ×2 (18:56→19:00)
[2017-09-18] MEDS: NYSTATIN CREAM 15 GM TP SCH (22:41)
[2017-09-19] MEDS: IPRATROPIUM/ALBUTEROL 0.5-2.5 MG/3 ML AMPUL NEB SCH ×4 (01:50→19:22)
[2017-09-19] MEDS: MIDAZOLAM HCL 50 MG/100 ML RTUINJ IV PRN ×2 (05:29→17:38)
[2017-09-19] MEDS: PROPOFOL 1,000 MG/100 ML INFUS..BTL IV PRN ×6 (05:29→22:31)
[2017-09-19 06:14] LABS: ARTERIAL BLOOD BASE EXCESS -4.1 mmol/L; ARTERIAL BLOOD H2CO3 1.01 mmol/L (1.05-1.35); ARTERIAL BLOOD HCO3 19.9 mmol/L (20-26); ARTERIAL BLOOD O2 SATURATION 95.5 % (94-98); ARTERIAL BLOOD PCO2 33.5 mmHg (35-45); ARTERIAL BLOOD PH 7.39 (7.35-7.45); ARTERIAL BLOOD PO2 77.2 mmHg (80-100); ARTERIAL BLOOD TOTAL CO2 20.9 mmol/L (21-25)
[2017-09-19 06:18] LABS: ARTERIAL BLOOD FIO2 30
[2017-09-19 06:22] LABS: ABSOLUTE LYMPHOCYTES (AUTO) 1.3 10^3/uL (0.5-4.7); ABSOLUTE MONOCYTES (AUTO) 0.6 10^3/uL (0.1-1.4); ABSOLUTE NEUT (AUTO) 8.7 10^3/uL (1.7-8.2); BASOPHILS % (AUTO) 0.4 % (0-2); EOSINOPHILS % (AUTO) 0.2 % (0-6); HEMATOCRIT 33.6 % (36.0-47.0); HEMOGLOBIN 11.3 g/dL (12.0-15.5); LYMPHOCYTES % (AUTO) 11.7 % (13-45); MEAN CORPUSCULAR HEMOGLOBIN 32.2 pg (27.0-33.4); MEAN CORPUSCULAR HGB CONC 33.5 g/dL (32.0-36.0); MEAN CORPUSCULAR VOLUME 96 fl (80-97); PLATELET COUNT 155 10^3/uL (150-450); RED BLOOD COUNT 3.49 10^6/uL (3.72-5.28); RED CELL DISTRIBUTION WIDTH 13.6 % (11.5-14.0); SEGMENTED NEUTROPHILS % (AUTO) 81.7 % (42-78); TOTAL CELLS COUNTED % (AUTO) 100 %; WHITE BLOOD COUNT 10.7 10^3/uL (4.0-10.5)
[2017-09-19 06:30] LABS: ALANINE AMINOTRANSFERASE 32 U/L (9-52); ALBUMIN 2.8 g/dL (3.5-5.0); ALKALINE PHOSPHATASE 133 U/L (38-126); ANION GAP 10 (5-19); ASPARTATE AMINO TRANSFERASE 33 U/L (14-36); BILIRUBIN,DIRECT 0.4 mg/dL (0.0-0.4); BILIRUBIN,TOTAL 0.4 mg/dL (0.2-1.3); BLOOD UREA NITROGEN 6 mg/dL (7-20); CALCIUM 8.1 mg/dL (8.4-10.2); CARBON DIOXIDE 21 mmol/L (22-30); CHLORIDE 112 mmol/L (98-107); GLUCOSE 147 mg/dL (75-110); PHOSPHORUS 4.6 mg/dL (2.5-4.5); POTASSIUM 3.7 mmol/L (3.6-5.0); SODIUM 143.4 mmol/L (137-145); TOTAL PROTEIN 5.4 g/dL (6.3-8.2)
--- NOTE | 2017-09-19 08:01 | RADIOLOGY REPORT (SQ) ---
EXAM DESCRIPTION: CHEST SINGLE VIEW COMPLETED DATE/TIME: 09/19/2017 7:16 am REASON FOR STUDY: resp failure COMPARISON: Chest films 09/17/2017, 09/18/2017 EXAM PARAMETERS: NUMBER OF VIEWS: One view. TECHNIQUE: Single frontal radiographic view of the chest acquired. RADIATION DOSE: NA LIMITATIONS: None. FINDINGS: LUNGS AND PLEURA: No opacities, masses or pneumothorax. No pleural effusion. MEDIASTINUM AND HILAR STRUCTURES: No masses. Contour normal. HEART AND VASCULAR STRUCTURES: Heart normal in size. Normal vasculature. BONES: No acute findings. HARDWARE: Endotracheal tube tip 4 cm above the boyd. Left-sided triple-lumen catheter tip in the s uperior vena cava. Nasogastric tube tip and side port in the stomach. OTHER: No other significant finding. IMPRESSION: Tubes and lines in good positioning. No focal infiltrates. TECHNICAL DOCUMENTATION: JOB ID: [id number] [employer]- All Rights Reserved Reading location - IP/workstation name: [email or web address]
[2017-09-19] MEDS: ENOXAPARIN SODIUM INJ 40 MG/0.4 ML DISP.SYRIN SUBCUT SCH (09:24)
[2017-09-19] MEDS: NYSTATIN CREAM 15 GM TP SCH ×2 (09:24→22:14)
[2017-09-19] MEDS: ACETAMINOPHEN SOLN 325 MG/10.15 ML UDCUP GT PRN (09:25)
[2017-09-19] MEDS: PANTOPRAZOLE SODIUM 40 MG VIAL IV SCH (09:25)
[2017-09-19] MEDS: HYDROCHLOROTHIAZIDE 12.5 MG CAPSULE GT SCH ×2 (09:26→22:14)
[2017-09-19] MEDS: LISINOPRIL 10 MG TABLET GT SCH ×2 (09:27→22:13)
[2017-09-19] MEDS: CEFTRIAXONE SODIUM 1,000 MG in DEXTROSE 5%-WATER 50 ML IV SCH (09:43)
[2017-09-19] MEDS: NORMAL SALINE 1000 ML 1,000 ML IV PRN ×2 (09:45→17:47)
[2017-09-19] MEDS ORDERED: CEFTRIAXONE 1 GM/D5W RTU 1 GM/50 ML RTUPB IV SCH (10:00)
[2017-09-19] MEDS ORDERED: SUCCINYLCHOLINE CHLORIDE INJ 200 MG/10 ML VIAL ONE (13:30)
--- NOTE | 2017-09-19 14:01 | PDOC PROGRESS REPORT ---
Subjective Progress Note for:: 09/19/17 Subjective:: Unchanged Reason For Visit: UNRESPONSIVE Physical Exam Vital Signs: Temp Pulse Resp BP Pulse Ox 99.9 F 72 16 132/80 H 98 09/19/17 07:52 09/19/17 07:52 09/19/17 07:52 09/19/17 07:52 09/19/17 07:52 Intake & Output 09/18/17 09/19/17 09/20/17 06:59 06:59 06:59 Intake Total 0 5722 Output Total 185 1610 350 Balance -185 4112 -350 Weight 89.3 kg 92.9 kg General appearance: PRESENT: no acute distress, disheveled, obese. ABSENT: cooperative Head exam: PRESENT: atraumatic, normocephalic Eye exam: PRESENT: conjunctiva pale. ABSENT: nystagmus, periorbital swelling, scleral icterus Mouth exam: PRESENT: dry mucosa, neck supple, tongue midline, other - ET tube in place Neck exam: ABSENT: carotid bruit, JVD, lymphadenopathy, thyromegaly, tracheal deviation, tracheostomy Respiratory exam: PRESENT: decreased breath sounds, prolonged expiratory phas, rhonchi, unlabored. ABSENT: rales, retraction, stridor Cardiovascular exam: PRESENT: RRR, +S1, +S2 Pulses: PRESENT: normal radial pulses GI/Abdominal exam: PRESENT: normal bowel sounds, soft Extremities exam: ABSENT: calf tenderness, clubbing, joint swelling Musculoskeletal exam: ABSENT: deformity, dislocation Neurological exam: ABSENT: awake Skin exam: PRESENT: dry, warm Results Laboratory Results: 09/19/17 06:00 09/19/17 06:00 09/19/17 09/19/17 09/19/17 06:00 06:00 06:00 WBC 10.7 H RBC 3.49 L Hgb 11.3 L Hct 33.6 L MCV 96 MCH 32.2 MCHC 33.5 RDW 13.6 Plt Count 155 Seg Neutrophils % 81.7 H Lymphocytes % 11.7 L Monocytes % 6.0 Eosinophils % 0.2 Basophils % 0.4 Absolute Neutrophils 8.7 H Absolute Lymphocytes 1.3 Absolute Monocytes 0.6 Absolute Eosinophils 0.0 Absolute Basophils 0.0 Carbonic Acid 1.01 L HCO3/H2CO3 Ratio 19:1 ABG pH 7.39 ABG pCO2 33.5 L ABG pO2 77.2 L ABG HCO3 19.9 L ABG O2 Saturation 95.5 ABG Base Excess -4.1 FiO2 30 Sodium 143.4 Potassium 3.7 Chloride 112 H Carbon Dioxide 21 L Anion Gap 10 BUN 6 L Creatinine 0.64 Est GFR ( Amer) > 60 Est GFR (Non-Af Amer) > 60 Glucose 147 H Calcium 8.1 L Phosphorus 4.6 H Magnesium 1.8 Total Bilirubin 0.4 AST 33 ALT 32 Alkaline Phosphatase 133 H Total Protein 5.4 L Albumin 2.8 L Impressions: Head CT 09/17/17 18:32 IMPRESSION: NORMAL BRAIN CT WITHOUT CONTRAST. EVIDENCE OF ACUTE STROKE: NO. Chest X-Ray 09/19/17 06:00 IMPRESSION: Tubes and lines in good positioning. No focal infiltrates. Assessment & Plan - Diagnosis (1) Altered mental status Qualifiers: Altered mental status type: unspecified Qualified Code(s): R41.82 - Altered mental status, unspecified Is this a current diagnosis for this admission?: Yes Plan: Currently unresponsive during sedation vacation will continue to support (2) Hypertension Qualifiers: Hypertension type: essential hypertension Qualified Code(s): I10 - Essential (primary) hypertension Is this a current diagnosis for this admission?: Yes Plan: Stable at this time (3) Suicidal intent Is this a current diagnosis for this admission?: Yes Plan: Several prior attempts post before this 1 exacerbated by this her son's recent (4) Unresponsive Is this a current diagnosis for this admission?: Yes Plan: Patient remains intubated did not respond to commands during sedation vacation - Time Total Critical Time (Minutes): 45
--- NOTE | 2017-09-19 18:44 | PDOC PROGRESS REPORT ---
Subjective Progress Note for:: 09/19/17 Subjective:: No adverse events overnight. She remains sedated and intubated. Her vital signs been stable. Blood pressures remain elevated, and we have had to reinstitute her home medications. She has been stable on the ventilator for a respiratory standpoint. She apparently did not follow commands during sedation holiday this morning. Reason For Visit: UNRESPONSIVE Physical Exam Vital Signs: Temp Pulse Resp BP Pulse Ox 99.5 F 68 14 127/77 H 98 09/19/17 18:00 09/19/17 17:52 09/19/17 18:00 09/19/17 17:52 09/19/17 18:00 Intake & Output 09/18/17 09/19/17 09/20/17 06:59 06:59 06:59 Intake Total 0 5722 1785 Output Total 185 1610 2310 Balance -185 4112 -525 Weight 89.3 kg 92.9 kg General appearance: PRESENT: other - Dated, intubated Respiratory exam: PRESENT: clear to auscultation kelechi. ABSENT: rales, rhonchi, wheezes Cardiovascular exam: PRESENT: RRR. ABSENT: diastolic murmur, rubs, systolic murmur Vascular exam: PRESENT: normal capillary refill GI/Abdominal exam: PRESENT: normal bowel sounds, soft. ABSENT: distended, guarding, mass, organolmegaly, rebound, tenderness Extremities exam: ABSENT: clubbing, pedal edema Musculoskeletal exam: PRESENT: normal inspection. ABSENT: deformity Neurological exam: PRESENT: other - Sedated, intubated Results Laboratory Results: 09/19/17 06:00 09/19/17 06:00 09/19/17 09/19/17 09/19/17 06:00 06:00 06:00 WBC 10.7 H RBC 3.49 L Hgb 11.3 L Hct 33.6 L MCV 96 MCH 32.2 MCHC 33.5 RDW 13.6 Plt Count 155 Seg Neutrophils % 81.7 H Lymphocytes % 11.7 L Monocytes % 6.0 Eosinophils % 0.2 Basophils % 0.4 Absolute Neutrophils 8.7 H Absolute Lymphocytes 1.3 Absolute Monocytes 0.6 Absolute Eosinophils 0.0 Absolute Basophils 0.0 Carbonic Acid 1.01 L HCO3/H2CO3 Ratio 19:1 ABG pH 7.39 ABG pCO2 33.5 L ABG pO2 77.2 L ABG HCO3 19.9 L ABG O2 Saturation 95.5 ABG Base Excess -4.1 FiO2 30 Sodium 143.4 Potassium 3.7 Chloride 112 H Carbon Dioxide 21 L Anion Gap 10 BUN 6 L Creatinine 0.64 Est GFR ( Amer) > 60 Est GFR (Non-Af Amer) > 60 Glucose 147 H Calcium 8.1 L Phosphorus 4.6 H Magnesium 1.8 Total Bilirubin 0.4 AST 33 ALT 32 Alkaline Phosphatase 133 H Total Protein 5.4 L Albumin 2.8 L Impressions: Head CT 09/17/17 18:32 IMPRESSION: NORMAL BRAIN CT WITHOUT CONTRAST. EVIDENCE OF ACUTE STROKE: NO. Chest X-Ray 09/19/17 06:00 IMPRESSION: Tubes and lines in good positioning. No focal infiltrates. Assessment & Plan - Diagnosis (1) Intentional drug overdose Qualifiers: Encounter type: initial encounter Qualified Code(s): T50.902A - Poisoning by unspecified drugs, medicaments and biological substances, intentional self- harm, initial encounter Is this a current diagnosis for this admission?: Yes Plan: She was found next to an empty bottle of oxycodone, she had benzodiazepines in her system, and she also was positive for alcohol. She had to lacerations on her left wrist, neither of which was deep enough to have a blood vessel. She is on the ventilator because she could not protect her airway. We will let the substances wash out of her system, and then will try to wean her from the vent and extubate her. Once that is done, she will have to be involuntarily committed. (2) Urinary tract infection Qualifiers: Urinary tract infection type: acute cystitis Hematuria presence: without hematuria Qualified Code(s): N30.00 - Acute cystitis without hematuria Is this a current diagnosis for this admission?: Yes Plan: She got a gram-negative louie growing in her urine. She is empirically on Rocephin. Awaiting cultures. - Time Time Spent with patient: 35 or more minutes Total Critical Time (Minutes): 35 Medications reviewed and adjusted accordingly: Yes
[2017-09-20] MEDS: NORMAL SALINE 1000 ML 1,000 ML IV PRN ×2 (01:06→11:45)
[2017-09-20] MEDS: IPRATROPIUM/ALBUTEROL 0.5-2.5 MG/3 ML AMPUL NEB SCH ×4 (02:09→20:43)
[2017-09-20] MEDS: PROPOFOL 1,000 MG/100 ML INFUS..BTL IV PRN ×2 (02:12→06:04)
[2017-09-20 05:29] LABS: ARTERIAL BLOOD BASE EXCESS -1.8 mmol/L; ARTERIAL BLOOD H2CO3 1.06 mmol/L (1.05-1.35); ARTERIAL BLOOD HCO3 22.2 mmol/L (20-26); ARTERIAL BLOOD O2 SATURATION 93.8 % (94-98); ARTERIAL BLOOD PCO2 35.1 mmHg (35-45); ARTERIAL BLOOD PH 7.42 (7.35-7.45); ARTERIAL BLOOD TOTAL CO2 23.3 mmol/L (21-25)
[2017-09-20 05:33] LABS: ABSOLUTE EOSINOPHILS # (AUTO) 0.1 10^3/uL (0.0-0.6); ABSOLUTE LYMPHOCYTES (AUTO) 1.1 10^3/uL (0.5-4.7); ABSOLUTE MONOCYTES (AUTO) 0.3 10^3/uL (0.1-1.4); ABSOLUTE NEUT (AUTO) 4.3 10^3/uL (1.7-8.2); BASOPHILS % (AUTO) 0.4 % (0-2); HEMATOCRIT 30.8 % (36.0-47.0); HEMOGLOBIN 10.4 g/dL (12.0-15.5); LYMPHOCYTES % (AUTO) 19.2 % (13-45); MEAN CORPUSCULAR HEMOGLOBIN 32.3 pg (27.0-33.4); MEAN CORPUSCULAR HGB CONC 33.6 g/dL (32.0-36.0); MEAN CORPUSCULAR VOLUME 96 fl (80-97); PLATELET COUNT 131 10^3/uL (150-450); RED BLOOD COUNT 3.21 10^6/uL (3.72-5.28); RED CELL DISTRIBUTION WIDTH 13.5 % (11.5-14.0); SEGMENTED NEUTROPHILS % (AUTO) 73.4 % (42-78); TOTAL CELLS COUNTED % (AUTO) 100 %; WHITE BLOOD COUNT 5.8 10^3/uL (4.0-10.5)
[2017-09-20 05:51] LABS: ARTERIAL BLOOD FIO2 25%
[2017-09-20 05:57] LABS: ALANINE AMINOTRANSFERASE 41 U/L (9-52); ALKALINE PHOSPHATASE 142 U/L (38-126); ANION GAP 11 (5-19); ASPARTATE AMINO TRANSFERASE 28 U/L (14-36); BILIRUBIN,DIRECT 0.4 mg/dL (0.0-0.4); BILIRUBIN,TOTAL 0.4 mg/dL (0.2-1.3); BLOOD UREA NITROGEN 5 mg/dL (7-20); CARBON DIOXIDE 21 mmol/L (22-30); CHLORIDE 115 mmol/L (98-107); GLUCOSE 125 mg/dL (75-110); POTASSIUM 3.5 mmol/L (3.6-5.0); SODIUM 146.8 mmol/L (137-145); TOTAL PROTEIN 4.9 g/dL (6.3-8.2)
--- NOTE | 2017-09-20 06:38 | RADIOLOGY REPORT (SQ) ---
EXAM DESCRIPTION: CHEST SINGLE VIEW COMPLETED DATE/TIME: 09/20/2017 6:17 am REASON FOR STUDY: resp failure COMPARISON: Chest films 09/17/2017, 09/18/2017, 09/19/2017 EXAM PARAMETERS: NUMBER OF VIEWS: One view. TECHNIQUE: Single frontal radiographic view of the chest acquired. RADIATION DOSE: NA LIMITATIONS: None. FINDINGS: LUNGS AND PLEURA: Minimal right retrocardiac atelectasis. Left lung grossly clear. No pl eural effusions or pneumothorax. MEDIASTINUM AND HILAR STRUCTURES: No masses. Contour normal. HEART AND VASCULAR STRUCTURES: Heart normal in size. Normal vasculature. BONES: No acute findings. HARDWARE: Endotracheal tube tip 3 cm above the boyd. Nasogastric tube tip and side port in the sto mach. Left-sided subclavian triple lumen catheter tip in the superior vena cava. OTHER: No other significant finding. IMPRESSION: Tubes and lines in good positioning. Minimal right retrocardiac atelectasis TECHNICAL DOCUMENTATION: JOB ID: [id number] [employer]- All Rights Reserved Reading location - IP/workstation name: [email or web address]
[2017-09-20] MEDS: MIDAZOLAM HCL 50 MG/100 ML RTUINJ IV PRN (07:48)
[2017-09-20] MEDS ORDERED: SCOPOLAMINE HYDROBROMIDE 1.5 MG PATCH.TD72 TD SCH (09:00)
[2017-09-20] MEDS: LISINOPRIL 10 MG TABLET GT SCH ×2 (09:04→21:33)
[2017-09-20] MEDS: HYDROCHLOROTHIAZIDE 12.5 MG CAPSULE GT SCH ×2 (09:09→21:33)
[2017-09-20] MEDS: PANTOPRAZOLE SODIUM 40 MG VIAL IV SCH (09:09)
[2017-09-20] MEDS: NYSTATIN CREAM 15 GM TP SCH ×2 (09:10→21:34)
[2017-09-20] MEDS: ENOXAPARIN SODIUM INJ 40 MG/0.4 ML DISP.SYRIN SUBCUT SCH (09:13)
[2017-09-20] MEDS ORDERED: DEXAMETHASONE SOD PHOS INJ 10 MG/1 ML VIAL IV ONE (09:15)
[2017-09-20] MEDS: CEFTRIAXONE SODIUM 1,000 MG in DEXTROSE 5%-WATER 50 ML IV SCH (09:17)
[2017-09-20 13:13] LABS: ARTERIAL BLOOD BASE EXCESS -2.2 mmol/L; ARTERIAL BLOOD H2CO3 0.95 mmol/L (1.05-1.35); ARTERIAL BLOOD PCO2 31.7 mmHg (35-45); ARTERIAL BLOOD PH 7.44 (7.35-7.45); ARTERIAL BLOOD PO2 77.7 mmHg (80-100)
[2017-09-20 13:14] LABS: ARTERIAL BLOOD FIO2 2L
[2017-09-20 14:23] LABS: ALBUMIN 2.4 g/dL (3.5-5.0)
[2017-09-20] MEDS: ACETAMINOPHEN SOLN 325 MG/10.15 ML UDCUP GT PRN (14:43)
--- NOTE | 2017-09-20 16:56 | PSYCHOLOGICAL NOTE ---
Psych Note - Psych Note Psych Note: Reason for consult; suicide attempt intentional overdose YAYO WIN is a 56 year old female patient with past medical history of bipolar disorder, hypertension and diabetes mellitus by EMS unresponsive. Since patient is intubated and on mechanical ventilation she is not source of history but history is obtained from ER attending and her son who is in the room during my encounter. Patient found unresponsive and sliced her left wrist at 3 places with suicidal intention. She drank 1/5 of rum and empty bottle of Percocet which was filled August 29. Patient was given several doses of Narcan but failed to respond and patient emergently intubated to protect her airway. Patient is in grief recently lost her son. Patient was just extubated today. She disclosed that she drank 1/5 of whiskey and was only "practicing her mormonism." When asked what her mormonism what she stated "slashing...[place]." Patient states that her son did pass away and while they are unsure they think it was from a heart attack. She reports that she does not have any outpatient mental health providers has never been inpatient psychiatric and does not taken any medications. Medication recommendations per [facility]'s contracted psychiatrist Dr. Cyndee MAYES are as follows 1. Please reduce home medication gabapentin to 800 mg 3 times daily 2. Please add Effexor 37.5 mg twice daily 3. Please add BuSpar 10 mg twice daily Impression\\plan: Patient is recommended for IVC. Patient presented to [facility] after intentional overdose and cutting her wrist. Currently patient is either unable or unwilling to fully engage with evaluation. Medications recommendations have been provided. Patient will be reevaluated. Dr. Mata was consulted and the care management this patient; attending physician is agreement with recommendations and disposition.
[2017-09-20] MEDS ORDERED: NICOTINE 14 MG/24 HR PATCH.TD24 TD ONE (17:00)
--- NOTE | 2017-09-20 17:56 | PDOC PROGRESS REPORT ---
Subjective Progress Note for:: 09/20/17 Subjective:: She was on a sedation holiday when I saw her this morning. She was very agitated and pulling at her restraints. It was very difficult to redirect her. We tried to get her to calm down and not fight the ventilator so much because we felt would be able to extubate her today. Reason For Visit: UNRESPONSIVE Physical Exam Vital Signs: Temp Pulse Resp BP Pulse Ox 99.1 F 87 18 141/85 H 100 09/20/17 15:30 09/20/17 13:47 09/20/17 15:30 09/20/17 15:21 09/20/17 15:30 Intake & Output 09/19/17 09/20/17 09/21/17 06:59 06:59 06:59 Intake Total 5722 3890 400 Output Total 1610 3735 1525 Balance 4112 155 -1125 Weight 92.9 kg 92.3 kg General appearance: PRESENT: disheveled, obese, other - Intubated on a sedation holiday. ABSENT: cooperative Respiratory exam: PRESENT: clear to auscultation kelechi. ABSENT: rales, rhonchi, wheezes Cardiovascular exam: PRESENT: RRR. ABSENT: diastolic murmur, rubs, systolic murmur Vascular exam: PRESENT: normal capillary refill GI/Abdominal exam: PRESENT: normal bowel sounds, soft. ABSENT: distended, guarding, mass, organolmegaly, rebound, tenderness Extremities exam: ABSENT: clubbing, pedal edema Musculoskeletal exam: PRESENT: normal inspection. ABSENT: deformity Neurological exam: PRESENT: alert, awake Psychiatric exam: PRESENT: agitated - Intubated Skin exam: PRESENT: dry, warm Results Laboratory Results: 09/20/17 05:10 09/20/17 05:10 09/20/17 09/20/17 09/20/17 05:10 05:10 05:10 WBC 5.8 RBC 3.21 L Hgb 10.4 L Hct 30.8 L MCV 96 MCH 32.3 MCHC 33.6 RDW 13.5 Plt Count 131 L Seg Neutrophils % 73.4 Lymphocytes % 19.2 Monocytes % 6.0 Eosinophils % 1.0 Basophils % 0.4 Absolute Neutrophils 4.3 Absolute Lymphocytes 1.1 Absolute Monocytes 0.3 Absolute Eosinophils 0.1 Absolute Basophils 0.0 Carbonic Acid 1.06 HCO3/H2CO3 Ratio 20:1 ABG pH 7.42 ABG pCO2 35.1 ABG pO2 67.0 L ABG HCO3 22.2 ABG O2 Saturation 93.8 L ABG Base Excess -1.8 FiO2 25% Sodium 146.8 H Potassium 3.5 L Chloride 115 H Carbon Dioxide 21 L Anion Gap 11 BUN 5 L Creatinine 0.61 Est GFR ( Amer) > 60 Est GFR (Non-Af Amer) > 60 Glucose 125 H Calcium 8.0 L Magnesium 1.8 Total Bilirubin 0.4 AST 28 ALT 41 Alkaline Phosphatase 142 H Total Protein 4.9 L Albumin 2.4 L 09/20/17 13:00 WBC RBC Hgb Hct MCV MCH MCHC RDW Plt Count Seg Neutrophils % Lymphocytes % Monocytes % Eosinophils % Basophils % Absolute Neutrophils Absolute Lymphocytes Absolute Monocytes Absolute Eosinophils Absolute Basophils Carbonic Acid 0.95 L HCO3/H2CO3 Ratio 22:1 ABG pH 7.44 ABG pCO2 31.7 L ABG pO2 77.7 L ABG HCO3 21.0 ABG O2 Saturation 96.0 ABG Base Excess -2.2 FiO2 2L Sodium Potassium Chloride Carbon Dioxide Anion Gap BUN Creatinine Est GFR ( Amer) Est GFR (Non-Af Amer) Glucose Calcium Magnesium Total Bilirubin AST ALT Alkaline Phosphatase Total Protein Albumin 09/18/17 15:20 Catheterized Urine Urine Culture - Final Enterobacter Aerogenes Impressions: Head CT 09/17/17 18:32 IMPRESSION: NORMAL BRAIN CT WITHOUT CONTRAST. EVIDENCE OF ACUTE STROKE: NO. Chest X-Ray 09/20/17 06:00 IMPRESSION: Tubes and lines in good positioning. Minimal right retrocardiac atelectasis Assessment & Plan - Diagnosis (1) Intentional drug overdose Qualifiers: Encounter type: initial encounter Qualified Code(s): T50.902A - Poisoning by unspecified drugs, medicaments and biological substances, intentional self- harm, initial encounter Is this a current diagnosis for this admission?: Yes Plan: She has been involuntarily committed. Psychiatric evaluation is pending. We hope to be able to extubate her today. (2) Urinary tract infection Qualifiers: Urinary tract infection type: acute cystitis Hematuria presence: without hematuria Qualified Code(s): N30.00 - Acute cystitis without hematuria Is this a current diagnosis for this admission?: Yes Plan: She got a gram-negative louie growing in her urine. She is empirically on Rocephin. Awaiting cultures. - Time Time Spent with patient: 35 or more minutes Total Critical Time (Minutes): 35 Medications reviewed and adjusted accordingly: Yes
--- NOTE | 2017-09-20 19:46 | PDOC PROGRESS REPORT ---
Subjective Progress Note for:: 09/20/17 Subjective:: arousable Reason For Visit: UNRESPONSIVE Physical Exam Vital Signs: Temp Pulse Resp BP Pulse Ox 98.4 F 62 15 153/93 H 100 09/20/17 06:13 09/20/17 02:09 09/20/17 06:13 09/20/17 06:13 09/20/17 06:13 Intake & Output 09/19/17 09/20/17 09/21/17 06:59 06:59 06:59 Intake Total 5722 3890 Output Total 1610 3735 Balance 4112 155 Weight 92.9 kg 92.3 kg General appearance: PRESENT: no acute distress, disheveled, obese Head exam: PRESENT: atraumatic, normocephalic Eye exam: PRESENT: conjunctiva pale, EOMI. ABSENT: nystagmus, periorbital swelling, scleral icterus Mouth exam: PRESENT: dry mucosa, neck supple, tongue midline, other - ET tube Neck exam: ABSENT: carotid bruit, JVD, lymphadenopathy, thyromegaly, tracheal deviation, tracheostomy Respiratory exam: PRESENT: decreased breath sounds, prolonged expiratory phas, rhonchi, unlabored. ABSENT: retraction, stridor Cardiovascular exam: PRESENT: RRR, +S1, +S2 Pulses: PRESENT: normal radial pulses GI/Abdominal exam: PRESENT: normal bowel sounds, soft Extremities exam: PRESENT: full ROM. ABSENT: calf tenderness, clubbing, pedal edema Musculoskeletal exam: ABSENT: deformity, dislocation Neurological exam: PRESENT: awake Skin exam: PRESENT: dry, warm Results Laboratory Results: 09/20/17 05:10 09/20/17 05:10 09/20/17 09/20/17 09/20/17 05:10 05:10 05:10 WBC 5.8 RBC 3.21 L Hgb 10.4 L Hct 30.8 L MCV 96 MCH 32.3 MCHC 33.6 RDW 13.5 Plt Count 131 L Seg Neutrophils % 73.4 Lymphocytes % 19.2 Monocytes % 6.0 Eosinophils % 1.0 Basophils % 0.4 Absolute Neutrophils 4.3 Absolute Lymphocytes 1.1 Absolute Monocytes 0.3 Absolute Eosinophils 0.1 Absolute Basophils 0.0 Carbonic Acid 1.06 HCO3/H2CO3 Ratio 20:1 ABG pH 7.42 ABG pCO2 35.1 ABG pO2 67.0 L ABG HCO3 22.2 ABG O2 Saturation 93.8 L ABG Base Excess -1.8 FiO2 25% Sodium 146.8 H Potassium 3.5 L Chloride 115 H Carbon Dioxide 21 L Anion Gap 11 BUN 5 L Creatinine 0.61 Est GFR ( Amer) > 60 Est GFR (Non-Af Amer) > 60 Glucose 125 H Calcium 8.0 L Magnesium 1.8 Total Bilirubin 0.4 AST 28 ALT 41 Alkaline Phosphatase 142 H Total Protein 4.9 L Albumin > 6.6 H 09/18/17 15:20 Catheterized Urine Urine Culture - Final Enterobacter Aerogenes Impressions: Head CT 09/17/17 18:32 IMPRESSION: NORMAL BRAIN CT WITHOUT CONTRAST. EVIDENCE OF ACUTE STROKE: NO. Chest X-Ray 09/20/17 06:00 IMPRESSION: Tubes and lines in good positioning. Minimal right retrocardiac atelectasis Assessment & Plan - Diagnosis (1) Altered mental status Qualifiers: Altered mental status type: unspecified Qualified Code(s): R41.82 - Altered mental status, unspecified Is this a current diagnosis for this admission?: Yes Plan: arousable responds to commands (2) Hypertension Qualifiers: Hypertension type: essential hypertension Qualified Code(s): I10 - Essential (primary) hypertension Is this a current diagnosis for this admission?: Yes Plan: Stable at this time (3) Suicidal intent Is this a current diagnosis for this admission?: Yes Plan: Several prior attempts post before this 1 exacerbated by this her son's recent (4) Unresponsive Is this a current diagnosis for this admission?: Yes Plan: arousable - Time Total Critical Time (Minutes): 55 - Plan Summary Plan Summary: min vol;rr;FIO2;airway pressure ok to extubate
[2017-09-21] MEDS: ACETAMINOPHEN SOLN 325 MG/10.15 ML UDCUP GT PRN ×2 (00:05→20:14)
[2017-09-21] MEDS: IPRATROPIUM/ALBUTEROL 0.5-2.5 MG/3 ML AMPUL NEB SCH ×4 (02:04→21:13)
[2017-09-21 06:00] LABS: ABSOLUTE LYMPHOCYTES (AUTO) 1.3 10^3/uL (0.5-4.7); ABSOLUTE MONOCYTES (AUTO) 0.5 10^3/uL (0.1-1.4); ABSOLUTE NEUT (AUTO) 6.8 10^3/uL (1.7-8.2); BASOPHILS % (AUTO) 0.4 % (0-2); EOSINOPHILS % (AUTO) 0.3 % (0-6); HEMATOCRIT 32.4 % (36.0-47.0); HEMOGLOBIN 10.9 g/dL (12.0-15.5); LYMPHOCYTES % (AUTO) 14.7 % (13-45); MEAN CORPUSCULAR HEMOGLOBIN 31.9 pg (27.0-33.4); MEAN CORPUSCULAR HGB CONC 33.8 g/dL (32.0-36.0); MEAN CORPUSCULAR VOLUME 94 fl (80-97); PLATELET COUNT 144 10^3/uL (150-450); RED BLOOD COUNT 3.43 10^6/uL (3.72-5.28); RED CELL DISTRIBUTION WIDTH 13.8 % (11.5-14.0); SEGMENTED NEUTROPHILS % (AUTO) 78.6 % (42-78); TOTAL CELLS COUNTED % (AUTO) 100 %; WHITE BLOOD COUNT 8.7 10^3/uL (4.0-10.5)
[2017-09-21 06:01] LABS: ARTERIAL BLOOD BASE EXCESS 1.1 mmol/L; ARTERIAL BLOOD FIO2 2L; ARTERIAL BLOOD H2CO3 1.07 mmol/L (1.05-1.35); ARTERIAL BLOOD HCO3 24.6 mmol/L (20-26); ARTERIAL BLOOD O2 SATURATION 96.1 % (94-98); ARTERIAL BLOOD PCO2 35.4 mmHg (35-45); ARTERIAL BLOOD PH 7.46 (7.35-7.45); ARTERIAL BLOOD PO2 76.8 mmHg (80-100); ARTERIAL BLOOD TOTAL CO2 25.7 mmol/L (21-25)
[2017-09-21 06:11] LABS: ANION GAP 8 (5-19); BLOOD UREA NITROGEN 10 mg/dL (7-20); CALCIUM 8.5 mg/dL (8.4-10.2); CARBON DIOXIDE 26 mmol/L (22-30); CHLORIDE 112 mmol/L (98-107); GLUCOSE 136 mg/dL (75-110); PHOSPHORUS 3.6 mg/dL (2.5-4.5); POTASSIUM 3.1 mmol/L (3.6-5.0); SODIUM 146.3 mmol/L (137-145)
--- NOTE | 2017-09-21 07:54 | RADIOLOGY REPORT (SQ) ---
EXAM DESCRIPTION: CHEST SINGLE VIEW COMPLETED DATE/TIME: 09/21/2017 7:05 am REASON FOR STUDY: resp failure COMPARISON: Chest films 09/17/2017, 09/18/2017, 09/19/2017, 09/20/2017 EXAM PARAMETERS: NUMBER OF VIEWS: One view. TECHNIQUE: Single frontal radiographic view of the chest acquired. RADIATION DOSE: NA LIMITATIONS: None. FINDINGS: LUNGS AND PLEURA: No dense consolidation. Pulmonary vascular congestion is present. No p leural effusion or pneumothorax. MEDIASTINUM AND HILAR STRUCTURES: No masses. Contour normal. HEART AND VASCULAR STRUCTURES: Mild cardiomegaly BONES: No acute findings. HARDWARE: Left-sided triple-lumen catheter tip in the superior vena cava OTHER: No other significant finding. IMPRESSION: Pulmonary vascular congestion without overt pulmonary edema. No dense consolidation wor risome for pneumonia TECHNICAL DOCUMENTATION: JOB ID: [id number] [employer]- All Rights Reserved Reading location - IP/workstation name: [email or web address]
[2017-09-21] MEDS: CEFTRIAXONE SODIUM 1,000 MG in DEXTROSE 5%-WATER 50 ML IV SCH (11:13)
[2017-09-21] MEDS: NICOTINE 14 MG/24 HR PATCH.TD24 TD SCH (11:17)
[2017-09-21] MEDS: LISINOPRIL 10 MG TABLET GT SCH ×2 (11:18→22:54)
[2017-09-21] MEDS: HYDROCHLOROTHIAZIDE 12.5 MG CAPSULE GT SCH ×2 (11:18→22:56)
[2017-09-21] MEDS: ENOXAPARIN SODIUM INJ 40 MG/0.4 ML DISP.SYRIN SUBCUT SCH (11:21)
[2017-09-21] MEDS: NYSTATIN CREAM 15 GM TP SCH ×2 (11:25→22:57)
--- NOTE | 2017-09-21 15:02 | PDOC PROGRESS REPORT ---
Subjective Progress Note for:: 09/21/17 Subjective:: Patient was found unresponsive and had to be intubated due to respiratory failure. She has been extubated and apparently doing well with no respiratory distress. She is awaiting to be seen by behavioral team. She is currently under involuntary commitment Reason For Visit: UNRESPONSIVE Physical Exam Vital Signs: Temp Pulse Resp BP Pulse Ox 99.9 F 73 12 166/90 H 98 09/21/17 14:00 09/21/17 08:32 09/21/17 14:00 09/21/17 11:21 09/21/17 14:00 Intake & Output 09/20/17 09/21/17 09/22/17 06:59 06:59 06:59 Intake Total 3890 3480 Output Total 3735 4200 880 Balance 155 -720 -880 Weight 92.3 kg 88.4 kg General appearance: PRESENT: no acute distress, well-developed, well-nourished Head exam: PRESENT: atraumatic, normocephalic Eye exam: PRESENT: conjunctiva pink, EOMI, PERRLA. ABSENT: scleral icterus Ear exam: PRESENT: normal external ear exam Mouth exam: PRESENT: moist, tongue midline Neck exam: ABSENT: carotid bruit, JVD, lymphadenopathy, thyromegaly Respiratory exam: PRESENT: clear to auscultation kelechi. ABSENT: rales, rhonchi, wheezes Cardiovascular exam: PRESENT: RRR. ABSENT: diastolic murmur, rubs, systolic murmur Pulses: PRESENT: normal dorsalis pedis pul Vascular exam: PRESENT: normal capillary refill GI/Abdominal exam: PRESENT: normal bowel sounds, soft. ABSENT: distended, guarding, mass, organolmegaly, rebound, tenderness Rectal exam: PRESENT: deferred Extremities exam: PRESENT: full ROM. ABSENT: calf tenderness, clubbing, pedal edema Neurological exam: PRESENT: alert, awake, oriented to person, oriented to place , oriented to time, oriented to situation, CN II-XII grossly intact. ABSENT: motor sensory deficit Psychiatric exam: PRESENT: appropriate affect, normal mood Skin exam: PRESENT: dry, intact, warm. ABSENT: cyanosis, rash Results Laboratory Results: 09/21/17 05:50 09/21/17 05:50 09/21/17 09/21/17 09/21/17 05:50 05:50 05:50 WBC 8.7 RBC 3.43 L Hgb 10.9 L Hct 32.4 L MCV 94 MCH 31.9 MCHC 33.8 RDW 13.8 Plt Count 144 L Seg Neutrophils % 78.6 H Lymphocytes % 14.7 Monocytes % 6.0 Eosinophils % 0.3 Basophils % 0.4 Absolute Neutrophils 6.8 Absolute Lymphocytes 1.3 Absolute Monocytes 0.5 Absolute Eosinophils 0.0 Absolute Basophils 0.0 Carbonic Acid 1.07 HCO3/H2CO3 Ratio 22:1 ABG pH 7.46 H ABG pCO2 35.4 ABG pO2 76.8 L ABG HCO3 24.6 ABG O2 Saturation 96.1 ABG Base Excess 1.1 FiO2 2L Sodium 146.3 H Potassium 3.1 L Chloride 112 H Carbon Dioxide 26 Anion Gap 8 BUN 10 Creatinine 0.63 Est GFR ( Amer) > 60 Est GFR (Non-Af Amer) > 60 Glucose 136 H Calcium 8.5 Phosphorus 3.6 Magnesium 1.7 Impressions: Head CT 09/17/17 18:32 IMPRESSION: NORMAL BRAIN CT WITHOUT CONTRAST. EVIDENCE OF ACUTE STROKE: NO. Chest X-Ray 09/21/17 06:00 IMPRESSION: Pulmonary vascular congestion without overt pulmonary edema. No dense consolidation worrisome for pneumonia Assessment & Plan - Time Time Spent with patient: 15-24 minutes Medications reviewed and adjusted accordingly: Yes Within: within 48 hours - Inpatient Certification Based on my medical assessment, after consideration of the patient's comorbidities, presenting symptoms, or acuity I expect that the services needed warrant INPATIENT care.: Yes Medical Necessity: Risk of Complication if Not Cared For in Hospital - Plan Summary Plan Summary: 1.Intentional drug overdose await psychiatric evaluation for further management 2. Urinary tract infection currently on empiric Rocephin will follow up with cultures. 3. Patient is stable to be moved out of the intensive care unit
--- NOTE | 2017-09-21 15:55 | PSYCHOLOGICAL NOTE ---
Psych Note - Psych Note Psych Note: Reason for consult; suicide attempt intentional overdose YAYO WIN is a 56 year old female patient with past medical history of bipolar disorder, hypertension and diabetes mellitus by EMS unresponsive. Since patient is intubated and on mechanical ventilation she is not source of history but history is obtained from ER attending and her son who is in the room during my encounter. Patient found unresponsive and sliced her left wrist at 3 places with suicidal intention. She drank 1/5 of rum and empty bottle of Percocet which was filled August 29. Patient was given several doses of Narcan but failed to respond and patient emergently intubated to protect her airway. Patient is in grief recently lost her son. Clinician conducted checking with patient Patient was very pleasant and engaged openly with clinician. Patient states she got "blizzed" and cut herself. Patient denies remembering cutting herself but knows that she must have done it while under the influence of alcohol "cannot handle alcohol very well." Patient confirms that she had a lot of loss recently with her mom passing away in 2015 her father passing away in 2016 and then her son passing away in June of this year. Patient states that she would like information on grief counseling. She continued disclosed that she historically has a diagnosis of bipolar since age 12 and used to take Prozac; " I think you need to go back on medication." Patient denies current suicidal ideations stating she does not want to leave her living son and feels "embarrassed." Patient confirms she lives with her son Robson and provided consent for clinician to contact him. Clinician contacted patient's son, Robson, he disclosed the patient got really drunk. She normally doesn't drink and she just drank way to much. He reports the patient has been very sad because of the of his younger brother and he has been trying to be there for her. He disclosed he would like to be part of the discharge plan i.e. no access to medications weapons and follows through with mental health recommendations. Patient is alert and orientated to person, place, time and circumstance. Mood is euthymic with congruent affect as evidenced by patient smiling and openly engaging with clinician. Patient denies current suicidal ideation admits to self-harm while intoxicated. Patient denies homicidal ideation. Delusions are absent behaviors congruent with intact reality based presentation i.e. organized and linear thought process. Intellectual abilities appear to be within the average range. Eye contact is well-maintained. Conversational speech was within normal rate, tone and prosody. Attention and concentration were good. Insight, judgment, impulse control are fair. Medication recommendations per [facility]'s contracted psychiatrist Dr. Cyndee MAYES are as follows 1. Please reduce home medication gabapentin to 800 mg 3 times daily 2. Please add Effexor 37.5 mg twice daily 3. Please add BuSpar 10 mg twice daily Diagnosis V62.82 (Z63.4) uncomplicated bereavement 296.830 (F31.9) unspecified bipolar and related disorder per history provided by patient Impression\\plan: Patient is recommended for rescind of IVC and is considered cleared from acute psychiatric services. While there was concern that the patient overdosed on Percocet, toxicology reports indicate the patient had benzodiazepines in her system not opiates. Patient and patient's son both report patient drank very heavily which is not normal for the patient. Patient denies current suicidal ideation. She explained she has been suffering from grief of her the loss of her son. Patient is recommended for grief therapy. Medication recommendations have been provided. Dr. Mata was consulted and the care management this patient; attending physician is agreement with recommendations and disposition.
[2017-09-21] MEDS ORDERED: HYDRALAZINE HCL INJ/PF 20 MG/1 ML SDV IV PRN (18:26)
[2017-09-22] MEDS: IPRATROPIUM/ALBUTEROL 0.5-2.5 MG/3 ML AMPUL NEB SCH ×2 (02:46→08:51)
[2017-09-22 04:11] VITALS: BP 158/95
--- NOTE | 2017-09-22 10:02 | PDOC DISCHARGE SUMMARY ---
General - Admit/Disc Date/PCP Admission Date/Primary Care Provider: 09/17/17 22:30 REILLY KASPER PA-C Discharge Date: 09/22/17 - Discharge Diagnosis (1) Acute respiratory failure Is this a current diagnosis for this admission?: Yes (2) Diabetes mellitus type 2 in nonobese Is this a current diagnosis for this admission?: Yes (3) Intentional drug overdose Is this a current diagnosis for this admission?: Yes (4) Suicidal intent Is this a current diagnosis for this admission?: Yes (5) Urinary tract infection Is this a current diagnosis for this admission?: Yes (6) Bereavement Is this a current diagnosis for this admission?: Yes (7) Alcohol intoxication Is this a current diagnosis for this admission?: Yes - Additional Information Discharge Diet: Cardiac Discharge Activity: Activity As Tolerated Prescriptions: Buspirone HCl [Buspar 10 mg Tablet] 10 mg PO BID #60 tablet Sulfamethoxazole/Trimethoprim [Bactrim Ds Tablet] 1 each PO BID #10 tablet Venlafaxine HCl ER [Effexor Xr 37.5 mg Cap.sr] 37.5 mg PO BID #60 cap.sr.24h Home Medications: Lisinopril/Hydrochlorothiazide [Lisinopril-Hctz 20-12.5 mg Tab] 1 tab PO Q12 04/07 Metformin HCl [Glucophage 500 mg Tablet] 1,000 mg PO BIDBS 09/18/17 Buspirone HCl [Buspar 10 mg Tablet] 10 mg PO BID #60 tablet 09/22/17 Gabapentin [Neurontin 400 mg Capsule] 800 mg PO TID #0 09/22/17 Nicotine [Nicoderm 14 mg/24 Hr Transdermal Patch] 1 each TD DAILY patch.td24 Nystatin [Mycostatin Cream 15 gm] 1 applic TP Q12 tube 09/22/17 Sulfamethoxazole/Trimethoprim [Bactrim Ds Tablet] 1 each PO BID #10 tablet 09/22 Venlafaxine HCl ER [Effexor Xr 37.5 mg Cap.sr] 37.5 mg PO BID #60 cap.sr.24h 08/05 History of Present Illness Patient complains of: Patient was admitted after being found unresponsive. History of Present Illness: YAYO WIN is a 56 year old female JOSÉ WIN is a 56 year old female patient with past medical history of bipolar disorder, hypertension and diabetes mellitus by EMS unresponsive. Since patient is intubated and on mechanical ventilation she is not source of history but history is obtained from ER attending and her son who is in the room during my encounter. Patient found unresponsive and sliced her left wrist at 3 places with suicidal intention. She drank 1/5 of rum and empty bottle of Percocet which was filled August 29. Patient was given several doses of Narcan but failed to respond and patient emergently intubated to protect her airway. Patient is in grief recently lost her son. Hospital Course Hospital Course: Patient was admitted after being found unresponsive. She also sliced her left wrist apparently at 3 places and so was thought to be suicidal. She will is intubated on admission. She later admitted to drinking alcohol in excess. He was seen by psychiatry and was initially placed under involuntary commitment however after extubation and for the evaluation patient was thought not to be suicidal but to be responding to the loss of her son and other family members and recent time. She was seen by Dr. Edwards also on consultation and she will follow-up as outpatient with her PCP as she was also found to have an 8 mm nodularity at the right perihilar region. She was extubated more than 48 hours ago and she has remained hemodynamically stable. IVC was also rescinded. She received antibiotics IV and will complete oral course for an acute UTI secondary to Enterobacter. Patient has remained hemodynamically stable and so she is been discharged home for follow-up and she has been given information regarding psychological support and advised to abstain from alcohol abuse Physical Exam Vital Signs: Temp Pulse Resp BP Pulse Ox 98.4 F 90 18 158/95 H 95 09/22/17 04:09 09/22/17 04:09 09/22/17 04:09 09/22/17 04:09 09/22/17 04:09 Intake & Output 09/21/17 09/22/17 09/23/17 06:59 06:59 06:59 Intake Total 3480 491 Output Total 4200 880 Balance -720 -389 Weight 88.4 kg 86.6 kg General appearance: PRESENT: no acute distress, well-developed, well-nourished, other - older looking than stated age Head exam: PRESENT: atraumatic, normocephalic Eye exam: PRESENT: conjunctiva pink, EOMI, PERRLA. ABSENT: scleral icterus Ear exam: PRESENT: normal external ear exam Mouth exam: PRESENT: moist, tongue midline Neck exam: ABSENT: carotid bruit, JVD, lymphadenopathy, thyromegaly Respiratory exam: PRESENT: clear to auscultation kelechi. ABSENT: rales, rhonchi, wheezes Cardiovascular exam: PRESENT: RRR. ABSENT: diastolic murmur, rubs, systolic murmur Pulses: PRESENT: normal dorsalis pedis pul Vascular exam: PRESENT: normal capillary refill GI/Abdominal exam: PRESENT: normal bowel sounds, soft. ABSENT: distended, guarding, mass, organolmegaly, rebound, tenderness Rectal exam: PRESENT: deferred Extremities exam: PRESENT: full ROM. ABSENT: calf tenderness, clubbing, pedal edema Neurological exam: PRESENT: alert, awake, oriented to person, oriented to place , oriented to time, oriented to situation, CN II-XII grossly intact. ABSENT: motor sensory deficit Psychiatric exam: PRESENT: appropriate affect, normal mood. ABSENT: homicidal ideation, suicidal ideation Skin exam: PRESENT: dry, intact, warm. ABSENT: cyanosis, rash Results Laboratory Results: 09/21/17 05:50 09/21/17 05:50 Impressions: Head CT 09/17/17 18:32 IMPRESSION: NORMAL BRAIN CT WITHOUT CONTRAST. EVIDENCE OF ACUTE STROKE: NO. Chest X-Ray 09/21/17 06:00 IMPRESSION: Pulmonary vascular congestion without overt pulmonary edema. No dense consolidation worrisome for pneumonia Qualifiers - * PATIENT BEING DISCHARGED WITH ANY OF THE FOLLOWING DIAGNOSIS: No Plan Time Spent: Greater than 30 Minutes
[2017-09-22] MEDS: LISINOPRIL 10 MG TABLET GT SCH (10:25)
[2017-09-22] MEDS: CEFTRIAXONE SODIUM 1,000 MG in DEXTROSE 5%-WATER 50 ML IV SCH (10:26)
[2017-09-22] MEDS: NYSTATIN CREAM 15 GM TP SCH (10:26)
[2017-09-22] MEDS: HYDROCHLOROTHIAZIDE 12.5 MG CAPSULE GT SCH (10:26)
[2017-09-22] MEDS: ENOXAPARIN SODIUM INJ 40 MG/0.4 ML DISP.SYRIN SUBCUT SCH (10:26)
[2017-09-22] MEDS: NICOTINE 14 MG/24 HR PATCH.TD24 TD SCH (10:26)
== END 2017-09-22 10:30 | disposition home or self-care (01) | DRG 917 ==
LOC: ER 18:07 → EH 22:30 → ICU 09-18 00:49
PROVIDERS: ADMIT Internal Medicine; ATTEND Internal Medicine
PROC: 5A1945Z Respiratory Ventilation, 24-96 Consecutive Hours (ICD-10-PCS; principal; 2017-09-17)
PROC: 0BH17EZ Insertion of Endotracheal Airway into Trachea, Via Natural or Artificial Opening (ICD-10-PCS; 2017-09-17)
PROC: 0HQEXZZ Repair Left Lower Arm Skin, External Approach (ICD-10-PCS; 2017-09-17)
PROC: 3E0F73Z Introduction of Anti-inflammatory into Respiratory Tract, Via Natural or Artificial Opening (ICD-10-PCS; 2017-09-18)
PROC: 02HV33Z Insertion of Infusion Device into Superior Vena Cava, Percutaneous Approach (ICD-10-PCS; 2017-09-18)
PROC: 5A09457 Assistance with Respiratory Ventilation, 24-96 Consecutive Hours, Continuous Positive Airway Pressure (ICD-10-PCS; 2017-09-20)
DX: T50.902A Poisoning by unspecified drugs, medicaments and biological substances, intentional self-harm, initial encounter (principal); J96.01 Acute respiratory failure with hypoxia; N30.00 Acute cystitis without hematuria; E11.9 Type 2 diabetes mellitus without complications; F10.129 Alcohol abuse with intoxication, unspecified; Y90.6 Blood alcohol level of 120-199 mg/100 ml; F31.9 Bipolar disorder, unspecified; I10 Essential (primary) hypertension; X78.1XXA Intentional self-harm by knife, initial encounter; Y92.019 Unspecified place in single-family (private) house as the place of occurrence of the external cause; B96.89 Other specified bacterial agents as the cause of diseases classified elsewhere; R91.1 Solitary pulmonary nodule; F43.21 Adjustment disorder with depressed mood; F17.210 Nicotine dependence, cigarettes, uncomplicated; Z63.4 Disappearance and death of family member; Z78.1 Physical restraint status; Z79.899 Other long term (current) drug therapy; Z88.0 Allergy status to penicillin; Z82.49 Family history of ischemic heart disease and other diseases of the circulatory system; Z81.8 Family history of other mental and behavioral disorders
CPT/HCPCS: 36415; 51702; 70450; 71045; 80048; 80053; 80307; 81001; 82803; 83735; 84100; 84300; 84484; 85025; 87086; 87088; 87186; 93005; 93010; 94002; 94003; 94640; 96361; 96374; 99291; C1751; J0330; J0696; J1100; J1642; J1650; J2250; J2310; J2704; J3490; J7030; J7620; S0164

== ENCOUNTER → 2017-12-29 | Outpatient (CLI) | payer MEDICARE ==
--- NOTE | 2017-12-29 14:15 | RADIOLOGY REPORT (SQ) ---
EXAM DESCRIPTION: CHEST PA/LATERAL COMPLETED DATE/TIME: 12/29/2017 2:05 pm REASON FOR STUDY: PRE-OP COMPARISON: 09/21/2017 EXAM PARAMETERS: NUMBER OF VIEWS: two views TECHNIQUE: Digital Frontal and Lateral radiographic views of the chest acquired. RADIATION DOSE: NA LIMITATIONS: none FINDINGS: LUNGS AND PLEURA: There is a calcified granuloma in the right base. No consolidation or e ffusions. MEDIASTINUM AND HILAR STRUCTURES: No masses or contour abnormalities. HEART AND VASCULAR STRUCTURES: Heart normal size. No evidence for failure. BONES: No acute findings. HARDWARE: None in the chest. OTHER: No other significant finding. IMPRESSION: NO SIGNIFICANT RADIOGRAPHIC FINDING IN THE CHEST. TECHNICAL DOCUMENTATION: JOB ID: [id number] [employer]- All Rights Reserved Reading location - IP/workstation name: [email or web address]
[2017-12-29 14:36] LABS: ABSOLUTE EOSINOPHILS # (AUTO) 0.1 10^3/uL (0.0-0.6); ABSOLUTE LYMPHOCYTES (AUTO) 2.3 10^3/uL (0.5-4.7); ABSOLUTE MONOCYTES (AUTO) 0.5 10^3/uL (0.1-1.4); ABSOLUTE NEUT (AUTO) 5.2 10^3/uL (1.7-8.2); BASOPHILS % (AUTO) 0.4 % (0-2); HEMOGLOBIN 13.6 g/dL (12.0-15.5); MEAN CORPUSCULAR HEMOGLOBIN 32.5 pg (27.0-33.4); MEAN CORPUSCULAR HGB CONC 33.9 g/dL (32.0-36.0); MEAN CORPUSCULAR VOLUME 96 fl (80-97); MONOCYTES % (AUTO) 6.1 % (3-13); PLATELET COUNT 267 10^3/uL (150-450); RED BLOOD COUNT 4.17 10^6/uL (3.72-5.28); SEGMENTED NEUTROPHILS % (AUTO) 64.5 % (42-78); TOTAL CELLS COUNTED % (AUTO) 100 %; WHITE BLOOD COUNT 8.1 10^3/uL (4.0-10.5)
[2017-12-29 14:40] LABS: APPEARANCE,URINE SLIGHTLY-CLOUDY; BILIRUBIN,URINE NEGATIVE (NEGATIVE); COLOR,URINE AMBER; GLUCOSE, URINE NEGATIVE (NEGATIVE); KETONES,URINE TRACE mg/dL (NEGATIVE); LEUKOCYTE ESTERASE,URINE SMALL (NEGATIVE); NITRITE,URINE POSITIVE (NEGATIVE); PROTEIN,URINE NEGATIVE (NEGATIVE); URINE SPECIFIC GRAVITY 1.026
[2017-12-29 14:55] LABS: ANION GAP 10 (5-19); BLOOD UREA NITROGEN 18 mg/dL (7-20); CALCIUM 9.7 mg/dL (8.4-10.2); CARBON DIOXIDE 26 mmol/L (22-30); CHLORIDE 98 mmol/L (98-107); GLUCOSE 197 mg/dL (75-110); POTASSIUM 4.7 mmol/L (3.6-5.0); SODIUM 134.4 mmol/L (137-145)
--- NOTE | 2017-12-29 22:32 | EKG REPORT ---
SEVERITY:- BORDERLINE ECG - SINUS RHYTHM SHORT PA INTERVAL, ACCELERATED AV CONDUCTION : Confirmed by: Safia Ford MD 29-Dec-2017 22:31:59
== END ==
LOC: OD 13:17
PROVIDERS: ATTEND Orthopaedic Surgery
DX: Z01.810 Encounter for preprocedural cardiovascular examination (principal); Z01.812 Encounter for preprocedural laboratory examination; Z01.818 Encounter for other preprocedural examination; E11.9 Type 2 diabetes mellitus without complications
CPT/HCPCS: 36415; 71046; 80048; 81001; 83036; 85025; 93005; 93010

== ENCOUNTER → 2018-04-12 | Outpatient (CLI) | payer MEDICARE ==
--- NOTE | 2018-04-12 17:59 | RADIOLOGY REPORT (SQ) ---
EXAM DESCRIPTION: CHEST PA/LATERAL COMPLETED DATE/TIME: 04/12/2018 5:19 pm REASON FOR STUDY: PRE-OP COMPARISON: None. EXAM PARAMETERS: NUMBER OF VIEWS: two views TECHNIQUE: Digital Frontal and Lateral radiographic views of the chest acquired. RADIATION DOSE: NA LIMITATIONS: none FINDINGS: LUNGS AND PLEURA: No opacities, masses or pneumothorax. No pleural effusion. Calcified gr anuloma in the right lung. MEDIASTINUM AND HILAR STRUCTURES: No masses or contour abnormalities. HEART AND VASCULAR STRUCTURES: Heart normal size. No evidence for failure. BONES: No acute findings. HARDWARE: None in the chest. OTHER: No other significant finding. IMPRESSION: NO SIGNIFICANT RADIOGRAPHIC FINDING IN THE CHEST. TECHNICAL DOCUMENTATION: JOB ID: [id number] [employer]- All Rights Reserved Reading location - IP/workstation name: [email or web address]
--- NOTE | 2018-04-13 08:05 | EKG REPORT ---
SEVERITY:- BORDERLINE ECG - SINUS OR ECTOPIC ATRIAL RHYTHM SHORT GA INTERVAL, ACCELERATED AV CONDUCTION : Confirmed by: Safia Ford MD 13-Apr-2018 08:04:32
== END ==
LOC: OD 16:58
PROVIDERS: ATTEND Orthopaedic Surgery
DX: Z01.810 Encounter for preprocedural cardiovascular examination (principal); Z01.818 Encounter for other preprocedural examination
CPT/HCPCS: 71046; 93005; 93010

== ENCOUNTER 2018-04-17 06:32 | Inpatient (IN) | payer MEDICARE ==
[2018-04-13 12:53] LABS: APPEARANCE,URINE SLIGHTLY-CLOUDY; BILIRUBIN,URINE NEGATIVE (NEGATIVE); COLOR,URINE YELLOW; GLUCOSE, URINE NEGATIVE (NEGATIVE); KETONES,URINE NEGATIVE (NEGATIVE); LEUKOCYTE ESTERASE,URINE MODERATE (NEGATIVE); NITRITE,URINE POSITIVE (NEGATIVE); PROTEIN,URINE NEGATIVE (NEGATIVE); URINE SPECIFIC GRAVITY 1.023; UROBILINOGEN,URINE NEGATIVE mg/dL (<2.0)
[~2018-04-17 06:32] MED LIST: BUPIVACAINE INJ/PF LIPOSOME/PF 266 MG/20 ML SDV INJ PRN; CEFAZOLIN INJ 1 GM VIAL INJ PRN; CEFAZOLIN INJ 1 GM VIAL ONE; IBUPROFEN 800 MG in NORMAL SALINE 250 ML IV PRN; LANSOPRAZOLE 15 MG TAB.RAP.DR ONE; LANSOPRAZOLE 15 MG TAB.RAP.DR PO PRN; OXYCODONE HCL SR 10 MG TABLET PO ONE; OXYCODONE HCL SR 10 MG TABLET PO PRN; RINGERS SOLUTION,LACTATED 1,000 ML IV PRN; VANCOMYCIN HCL 1,000 MG in DEXTROSE 5%-WATER 250 ML IV PRN
[2018-04-17 09:10] LABS: POTASSIUM 4.4 mmol/L (3.6-5.0)
[2018-04-17] MEDS ORDERED: BUPIVACAINE HCL 0.5%-EPI 1:200000 INJ/PF 30 ML VIAL ONE (09:18)
[2018-04-17] MEDS ORDERED: THROMBIN (BOVINE) TOPICAL 20000 UNIT VIAL ONE (09:18)
[2018-04-17] MEDS ORDERED: ALBUTEROL SULFATE 0.083% NEB 2.5 MG/3 ML AMPUL NEB ONE (09:22)
[2018-04-17] MEDS ORDERED: FENTANYL CITRATE INJ/PF 100 MCG/2 ML AMPUL ONE (09:25)
[2018-04-17] MEDS ORDERED: TRANEXAMIC ACID INJ/PF 1,000 MG/10 ML SDV IV ONE ×2 (09:25→14:30)
[2018-04-17] MEDS ORDERED: HYDROMORPHONE HCL INJ/PF 2 MG/ML AMPULE ONE (09:25)
[2018-04-17] MEDS ORDERED: MIDAZOLAM 2 MG/2 ML INJ ONE (09:25)
[2018-04-17] MEDS ORDERED: PROPOFOL INJ 200 MG/20 ML VIAL IV ONE (09:26)
[2018-04-17] MEDS ORDERED: ACETAMINOPHEN 1,000 MG/100 ML RTUPB IV ONE (09:26)
[2018-04-17] MEDS ORDERED: MEPERIDINE HCL/PF INJ 25 MG/1 ML DISP.SYRIN IV PRN (10:57)
[2018-04-17] MEDS ORDERED: DIPHENHYDRAMINE HCL 50 MG/ML VIAL IV PRN ×2 (10:57→11:38)
[2018-04-17] MEDS ORDERED: PROMETHAZINE HCL INJ 25 MG/1 ML VIAL IV PRN (10:57)
[2018-04-17] MEDS ORDERED: FENTANYL CITRATE INJ/PF 100 MCG/2 ML AMPUL IV PRN ×3 (10:57)
[2018-04-17] MEDS ORDERED: MORPHINE SULFATE 10 MG/ML INJ IV PRN ×5 (10:57→11:38)
--- NOTE | 2018-04-17 11:37 | Operative Report ---
Operative Report DATE OF SURGERY: 04/17/18 PREOPERATIVE DIAGNOSIS: Right hip arthritis OPERATION: Right hip arthroplasty SURGEON: LEANN ASHBY ANESTHESIA: Spinal TISSUE REMOVED OR ALTERED: Femoral head to pathology ESTIMATED BLOOD LOSS: 100 PROCEDURE: Implants used: Femur: Size 3 [place] Accolade 2 stem Acetabular shell: 50 mm PSL shell Liner: 36 mm flat cross-link polyethylene liner Head: A 36 mm chrome cobalt head standard neck The patient is placed in a left lateral decubitus position on the operating table. The right lower extremity and hindquarter is prepped and draped in a sterile fashion. A curvilinear incision was made over the greater trochanter a posterior approach the hip was taken. The femoral head is dislocated and the femoral neck transected using an oscillating saw. Attention was next turned to the acetabulum. Soft tissues cleared off the acetabulum using electrocautery. The acetabulum was then prepared using a series of hemispherical reamers until a 50 millimeters reamer is seated. Subsequently a 50 millimeters Gayle titanium PSL shell is impacted into position and secured with one screw. A standard flat 36 millimeters cross-link liner is impacted into the shell. Attention was next turned to the femur. Access is gained to the femoral canal using a box osteotome to the piriformis fossa. The femur is then prepared using a series of broaches until a number 3 broach is seated. A trial reduction was now performed using a 36 millimeters head with standard neck. Preoperative leg length was recreated and is excellent anterior posterior stability. A decision was made to proceed with the above construct. All trial implants were removed. The wound is irrigated with pulsed lavage. A number 3 stem is impacted into the femoral canal. A trial reduction was again performed with a 36 mm head and a standard neck. Findings as previously. The hip was dislocated one last time and the final chrome-cobalt head is impacted onto the trunnion. The hip was reduced. Wound is copiously irrigated with pulsed lavage. Sent closed in layers using interrupted Vicryl followed by edyta. A sterile dressing is applied and the patient's returned to recovery room in satisfactory patient.
[2018-04-17] MEDS ORDERED: MAG HYDROX/AL HYDROX/SIMETH SUSP 30 ML UDCUP PO PRN (11:38)
[2018-04-17] MEDS ORDERED: ONDANSETRON 4 MG TAB.RAPDIS PO PRN (11:38)
[2018-04-17] MEDS ORDERED: RINGERS SOLUTION,LACTATED 1,000 ML IV PRN (11:38)
[2018-04-17] MEDS ORDERED: ONDANSETRON HCL INJ/PF 4 MG/2 ML SDV IV PRN (11:38)
[2018-04-17] MEDS ORDERED: ZOLPIDEM TARTRATE 5 MG TABLET PO PRN (11:38)
[2018-04-17] MEDS ORDERED: (PENDING PHARMACY ID) (Ergocalciferol (Vitamin D2) [Vitamin D2] 50,000 UNIT) PO SCH (11:45)
[2018-04-17] MEDS ORDERED: ONDANSETRON HCL INJ/PF 4 MG/2 ML SDV ONE (12:03)
[2018-04-17] MEDS ORDERED: GLYCOPYRROLATE 1 MG/5 ML SYRINGE ONE (12:03)
[2018-04-17] MEDS ORDERED: SUCCINYLCHOLINE CHLORIDE INJ 200 MG/10 ML VIAL ONE (12:03)
[2018-04-17] MEDS ORDERED: DEXAMETHASONE SOD PHOSPHATE INJ 4 MG/1 ML VIAL ONE (12:03)
[2018-04-17] MEDS ORDERED: ROCURONIUM BROMIDE INJ 50 MG/5 ML VIAL IV ONE (12:03)
[2018-04-17] MEDS: FENTANYL CITRATE INJ/PF 100 MCG/2 ML AMPUL ONE ×2 (12:10→12:15)
[2018-04-17] MEDS ORDERED: GLUCAGON,HUMAN RECOMB 1 MG INJ IM PRN (12:30)
[2018-04-17] MEDS ORDERED: DEXTROSE 40% GEL 15 GM TUBE X 2 PO PRN (12:30)
[2018-04-17] MEDS ORDERED: DEXTROSE 50%-WATER SYRINGE 25 GM/50 ML DOSE IV PRN (12:30)
[2018-04-17] MEDS ORDERED: DEXTROSE 50%-WATER SYRINGE 12.5 GM/25 ML DOSE IV PRN (12:30)
[2018-04-17] MEDS ORDERED: DEXTROSE 40% GEL 15 GM TUBE PO PRN (12:30)
--- NOTE | 2018-04-17 12:54 | RADIOLOGY REPORT (SQ) ---
EXAM DESCRIPTION: PELVIS AP COMPLETED DATE/TIME: 04/17/2018 12:45 pm REASON FOR STUDY: Post Op Long Cassette in PACU M16.11 UNILATERAL PRIMARY OSTEOARTHRITIS, RIGHT HI P COMPARISON: None. NUMBER OF VIEWS: One view TECHNIQUE: AP Pelvis LIMITATIONS: None. FINDINGS: Postoperative image of the pelvis and proximal femurs shows a right hip arthroplasty in go od position. IMPRESSION: Right hip arthroplasty. Refer to operative note for further information. COMMENT: Pelvic fractures are often occult on plain radiographs. If strong clinical suspicion for f racture, recommend CT or MR. TECHNICAL DOCUMENTATION: JOB ID: [id number] [employer]- All Rights Reserved Reading location - IP/workstation name: [email or web address]
[2018-04-17] MEDS: OXYCODONE HCL IR 5 MG TABLET PO PRN ×2 (14:19→20:33)
[2018-04-17] MEDS: GABAPENTIN 300 MG CAPSULE PO SCH ×2 (14:20→21:18)
[2018-04-17] MEDS: BUSPIRONE HCL 10 MG TABLET PO SCH (17:25)
[2018-04-17] MEDS: METFORMIN HCL 500 MG TABLET PO SCH (17:25)
[2018-04-17] MEDS: OXYCODONE HCL SR 10 MG TABLET PO SCH (17:26)
[2018-04-17] MEDS: IBUPROFEN 800 MG in NORMAL SALINE 250 ML IV SCH (17:26)
[2018-04-17] MEDS: SENNOSIDES/DOCUSATE 8.6-50 MG 1 EACH TABLET PO SCH (17:28)
[2018-04-17] MEDS: HYDROCHLOROTHIAZIDE 12.5 MG TABLET PO SCH (17:33)
[2018-04-17] MEDS: LISINOPRIL 10 MG TABLET PO SCH (17:33)
[2018-04-17] MEDS: INSULIN LISPRO 100 UNIT/ML 3 ML VIAL SUBCUT PRN ×3 (17:49→21:40)
[2018-04-17] MEDS ORDERED: (PENDING PHARMACY ID) (Lisinopril/Hydrochlorothiazide [Lisinopril-Hctz 20-12.5 Mg Tab] 1 T PO SCH (18:00)
[2018-04-17] MEDS: METOPROLOL TARTRATE 50 MG TABLET PO SCH (21:18)
[2018-04-17] MEDS: NYSTATIN CREAM 15 GM TP SCH (21:19)
[2018-04-17] MEDS: ACETAMINOPHEN 325 MG TABLET PO PRN (23:27)
[2018-04-18] MEDS ORDERED: VANCOMYCIN HCL 1,000 MG in DEXTROSE 5%-WATER 250 ML IV ONE ×2
[2018-04-18] MEDS: IBUPROFEN 800 MG in NORMAL SALINE 250 ML IV SCH ×3 (02:29→17:47)
[2018-04-18] MEDS: OXYCODONE HCL IR 5 MG TABLET PO PRN ×4 (02:33→21:30)
[2018-04-18] MEDS: HYDROCHLOROTHIAZIDE 12.5 MG TABLET PO SCH ×2 (05:02→17:46)
[2018-04-18] MEDS: GABAPENTIN 300 MG CAPSULE PO SCH ×3 (05:02→21:30)
[2018-04-18] MEDS: LANSOPRAZOLE 30 MG TAB.RAP.DR PO SCH (05:03)
[2018-04-18] MEDS: LISINOPRIL 10 MG TABLET PO SCH ×2 (05:03→17:46)
[2018-04-18] MEDS: OXYCODONE HCL SR 10 MG TABLET PO SCH ×2 (05:03→17:46)
[2018-04-18 05:27] LABS: HEMATOCRIT 30.9 % (36.0-47.0); HEMOGLOBIN 10.5 g/dL (12.0-15.5); MEAN CORPUSCULAR HEMOGLOBIN 32.4 pg (27.0-33.4); MEAN CORPUSCULAR HGB CONC 34.1 g/dL (32.0-36.0); MEAN CORPUSCULAR VOLUME 95 fl (80-97); PLATELET COUNT 168 10^3/uL (150-450); RED BLOOD COUNT 3.25 10^6/uL (3.72-5.28); RED CELL DISTRIBUTION WIDTH 14.3 % (11.5-14.0); WHITE BLOOD COUNT 11.7 10^3/uL (4.0-10.5)
[2018-04-18 05:56] LABS: ANION GAP 10 (5-19); BLOOD UREA NITROGEN 23 mg/dL (7-20); CALCIUM 8.9 mg/dL (8.4-10.2); CARBON DIOXIDE 24 mmol/L (22-30); CHLORIDE 104 mmol/L (98-107); GLUCOSE 201 mg/dL (75-110); POTASSIUM 4.3 mmol/L (3.6-5.0)
--- NOTE | 2018-04-18 06:46 | PDOC PROGRESS REPORT ---
Subjective Progress Note for:: 04/18/18 Reason For Visit: RIGHT HIP ARTHRITIS 57-year-old white female now postop day 1 status post right hip arthroplasty. Postoperative course is notable for hyperglycemia otherwise uneventful. Patient ambulated 80 feet with physical therapy on the day of surgery. Physical Exam Vital Signs: Temp Pulse Resp BP Pulse Ox 36.4 C 69 16 112/66 97 04/17/18 23:18 04/17/18 23:18 04/17/18 23:18 04/17/18 23:18 04/17/18 23:18 Intake & Output 04/16/18 04/17/18 04/18/18 06:59 06:59 06:59 Intake Total 6724 Output Total 2550 Balance 4174 Weight 90 kg General appearance: PRESENT: no acute distress Head exam: PRESENT: normocephalic Respiratory exam: PRESENT: unlabored Cardiovascular exam: PRESENT: RRR Pulses: PRESENT: +1 pedal pulses bilateral GI/Abdominal exam: PRESENT: soft Rectal exam: PRESENT: deferred Extremities exam: PRESENT: other - Right hip dressing clean dry and intact. Leg lengths equal. Distal neurovascular examination is intact. Neurological exam: PRESENT: alert, awake, oriented to person, oriented to place, oriented to time, oriented to situation, CN II-XII grossly intact. ABSENT: motor sensory deficit Psychiatric exam: PRESENT: appropriate affect, normal mood. ABSENT: homicidal ideation, suicidal ideation Skin exam: PRESENT: dry, intact, warm. ABSENT: cyanosis, rash Results Laboratory Results: 04/18/18 05:08 04/18/18 05:08 04/17/18 04/17/18 04/18/18 08:32 08:32 05:08 WBC 11.7 H RBC 3.25 L Hgb 10.5 L Hct 30.9 L MCV 95 MCH 32.4 MCHC 34.1 RDW 14.3 H Plt Count 168 Sodium Potassium 4.4 Chloride Carbon Dioxide Anion Gap BUN Creatinine Est GFR ( Amer) Est GFR (Non-Af Amer) Glucose 161 H Calcium Blood Type A POSITIVE Antibody Screen NEGATIVE 04/18/18 05:08 WBC RBC Hgb Hct MCV MCH MCHC RDW Plt Count Sodium 138.0 Potassium 4.3 Chloride 104 Carbon Dioxide 24 Anion Gap 10 BUN 23 H Creatinine 0.87 Est GFR ( Amer) > 60 Est GFR (Non-Af Amer) > 60 Glucose 201 H Calcium 8.9 Blood Type Antibody Screen Impressions: Pelvis X-Ray 04/17/18 11:39 IMPRESSION: Right hip arthroplasty. Refer to operative note for further information. Status: Imported from PACS Assessment & Plan - Diagnosis (1) Arthritis of right hip Is this a current diagnosis for this admission?: Yes Plan: Mobilized with physical therapy and weightbearing as tolerated basis. Anticipate discharge home tomorrow with home health services and DME. (2) Diabetes mellitus type 2 in nonobese Is this a current diagnosis for this admission?: Yes Plan: Current glucose control is not particularly tight. Glucoses yesterday as high as 369 on the sliding scale. - Time Time Spent with patient: 15-24 minutes Anticipated discharge: Home with Homehealth Within: within 24 hours
[2018-04-18] MEDS: BUSPIRONE HCL 10 MG TABLET PO SCH ×2 (09:25→17:45)
[2018-04-18] MEDS: METFORMIN HCL 500 MG TABLET PO SCH ×2 (09:26→17:46)
[2018-04-18] MEDS: SERTRALINE HCL 50 MG TABLET PO SCH (09:27)
[2018-04-18] MEDS: SENNOSIDES/DOCUSATE 8.6-50 MG 1 EACH TABLET PO SCH ×2 (09:27→17:46)
[2018-04-18] MEDS: GLIPIZIDE XL 5 MG TAB.ER.24 PO SCH (09:27)
[2018-04-18] MEDS: SITAGLIPTIN PHOSPHATE 50 MG TABLET PO SCH (09:27)
[2018-04-18] MEDS: ASPIRIN 81 MG TABLET, ENT COATED PO SCH (09:27)
[2018-04-18] MEDS: AMLODIPINE BESYLATE 10 MG TABLET PO SCH (09:27)
[2018-04-18] MEDS: METOPROLOL TARTRATE 50 MG TABLET PO SCH ×2 (09:27→21:29)
[2018-04-18] MEDS: PRENATAL VITAMIN W DHA CAPSULE PO SCH (09:27)
[2018-04-18] MEDS: NYSTATIN CREAM 15 GM TP SCH ×2 (09:28→21:31)
[2018-04-18] MEDS: INSULIN LISPRO 100 UNIT/ML 3 ML VIAL SUBCUT SCH ×3 (12:08→21:32)
[2018-04-19] MEDS: IBUPROFEN 800 MG in NORMAL SALINE 250 ML IV SCH ×2 (01:01→10:47)
[2018-04-19] MEDS: OXYCODONE HCL SR 10 MG TABLET PO SCH (05:04)
[2018-04-19] MEDS: GABAPENTIN 300 MG CAPSULE PO SCH ×2 (05:05→15:32)
[2018-04-19] MEDS: HYDROCHLOROTHIAZIDE 12.5 MG TABLET PO SCH (05:05)
[2018-04-19] MEDS: LISINOPRIL 10 MG TABLET PO SCH (05:05)
[2018-04-19] MEDS: LANSOPRAZOLE 30 MG TAB.RAP.DR PO SCH (05:06)
[2018-04-19 05:37] LABS: HEMATOCRIT 30.6 % (36.0-47.0); HEMOGLOBIN 10.4 g/dL (12.0-15.5); MEAN CORPUSCULAR HEMOGLOBIN 32.6 pg (27.0-33.4); MEAN CORPUSCULAR VOLUME 96 fl (80-97); PLATELET COUNT 147 10^3/uL (150-450); RED BLOOD COUNT 3.19 10^6/uL (3.72-5.28); RED CELL DISTRIBUTION WIDTH 14.4 % (11.5-14.0); WHITE BLOOD COUNT 7.3 10^3/uL (4.0-10.5)
--- NOTE | 2018-04-19 07:08 | PDOC DISCHARGE SUMMARY ---
General - Admit/Disc Date/PCP Admission Date/Primary Care Provider: 04/17/18 08:08 REILLY KASPER PA-C Discharge Date: 04/19/18 - Discharge Diagnosis (1) Arthritis of right hip Is this a current diagnosis for this admission?: Yes (2) Diabetes mellitus type 2 in nonobese Is this a current diagnosis for this admission?: Yes - Additional Information Resuscitation Status: Full Code Home Medications: Metformin HCl [Glucophage 500 mg Tablet] 1,000 mg PO BIDBS 09/18/17 Amlodipine Besylate [Norvasc 10 mg Tablet] 10 mg PO DAILY 04/13/18 Ergocalciferol (Vitamin D2) [Vitamin D2] 50,000 unit PO HAAS@1000 04/13/18 Gabapentin 600 mg PO TID 04/13/18 Glipizide [Glipizide Xl] 10 mg PO DAILY 04/13/18 Lisinopril/Hydrochlorothiazide [Lisinopril-Hctz 20-12.5 mg Tab] 1 tab PO BID 04/13/18 Metoprolol Tartrate [Lopressor 50 mg Tablet] 50 mg PO BID 04/13/18 Sertraline HCl 100 mg PO DAILY 04/13/18 Sitagliptin Phosphate [Januvia 50 mg Tablet] 100 mg PO DAILY 04/13/18 Oxycodone HCl/Acetaminophen [Percocet 7.5-325 mg Tablet] 1 tab PO Q6HP PRN 04/17/18 History of Present Illness History of Present Illness: YAYO WIN is a 57 year old female Patient is a 57-year-old white female with progressive right hip pain and functional disability second osteoarthritis. Patient is admitted for elective right hip arthroplasty. Hospital Course Hospital Course: Patient is admitted through the operating where she undergoes uncomplicated right hip arthroplasty. She is returned to floor in satisfactory condition. She makes excellent progress with physical therapy and weightbearing as tolerated basis. Dressing remains clean dry and intact. Leg lengths are equal. Distal neurovascular examination is intact. Physical Exam Vital Signs: Temp Pulse Resp BP Pulse Ox 37.3 C 88 18 122/66 92 04/18/18 23:16 04/18/18 23:16 04/18/18 23:16 04/18/18 23:16 04/18/18 23:16 Intake & Output 04/18/18 04/19/18 04/20/18 06:59 06:59 06:59 Intake Total 6724 1969 Output Total 2550 Balance 4174 1970 Weight 90 kg 90 kg Physical Exam: Moderately built middle-aged white female lying in hospital bed in street closed in minimal distress. General appearance: PRESENT: no acute distress Head exam: PRESENT: normocephalic Respiratory exam: PRESENT: unlabored Cardiovascular exam: PRESENT: RRR Pulses: PRESENT: +1 pedal pulses bilateral Vascular exam: PRESENT: normal capillary refill GI/Abdominal exam: PRESENT: soft Rectal exam: PRESENT: deferred Extremities exam: PRESENT: other - Right hip dressing remains clean dry and intact. Leg lengths are equal. Distal neurovascular examination is intact. Neurological exam: PRESENT: alert, awake, oriented to person, oriented to place, oriented to time, oriented to situation. ABSENT: motor sensory deficit Psychiatric exam: PRESENT: appropriate affect, normal mood. ABSENT: homicidal ideation, suicidal ideation Skin exam: PRESENT: dry, intact, warm. ABSENT: cyanosis, rash Results Laboratory Results: 04/19/18 03:40 04/18/18 05:08 04/19/18 03:40 WBC 7.3 RBC 3.19 L Hgb 10.4 L Hct 30.6 L MCV 96 MCH 32.6 MCHC 34.0 RDW 14.4 H Plt Count 147 L Impressions: Pelvis X-Ray 04/17/18 11:39 IMPRESSION: Right hip arthroplasty. Refer to operative note for further information. Status: Imported from PACS Qualifiers - * PATIENT BEING DISCHARGED WITH ANY OF THE FOLLOWING DIAGNOSIS: No VTE patient discharged on overlapping Therapy?: Yes Plan Discharge Plan: Patient to be discharged home with home health services and DME. Follow-up Dr. Austin Bronson [facility] for surgery in 2 weeks for staple removal. Time Spent: Less than 30 Minutes
[2018-04-19] MEDS: INSULIN LISPRO 100 UNIT/ML 3 ML VIAL SUBCUT SCH ×2 (10:44→11:55)
[2018-04-19] MEDS: BUSPIRONE HCL 10 MG TABLET PO SCH (10:45)
[2018-04-19] MEDS: ASPIRIN 81 MG TABLET, ENT COATED PO SCH (10:46)
[2018-04-19] MEDS: SITAGLIPTIN PHOSPHATE 50 MG TABLET PO SCH (10:46)
[2018-04-19] MEDS: SERTRALINE HCL 50 MG TABLET PO SCH (10:46)
[2018-04-19] MEDS: METOPROLOL TARTRATE 50 MG TABLET PO SCH (10:46)
[2018-04-19] MEDS: METFORMIN HCL 500 MG TABLET PO SCH (10:46)
[2018-04-19] MEDS: PRENATAL VITAMIN W DHA CAPSULE PO SCH (10:46)
[2018-04-19] MEDS: AMLODIPINE BESYLATE 10 MG TABLET PO SCH (10:46)
[2018-04-19] MEDS: GLIPIZIDE XL 5 MG TAB.ER.24 PO SCH (10:46)
[2018-04-19] MEDS: SENNOSIDES/DOCUSATE 8.6-50 MG 1 EACH TABLET PO SCH (10:47)
[2018-04-19] MEDS: NYSTATIN CREAM 15 GM TP SCH (10:47)
[2018-04-19] MEDS: ACETAMINOPHEN 325 MG TABLET PO PRN (12:41)
[2018-04-19] MEDS: OXYCODONE HCL IR 5 MG TABLET PO PRN (15:32)
[2018-04-19 16:29] VITALS: BP 117/60
[2018-04-23] MEDS ORDERED: ERGOCALCIFEROL (VITAMIN D2) 50000 UNIT (1.25 MG) CAPSULE PO SCH (10:00)
== END 2018-04-19 16:00 | disposition home health service (06) | DRG 470 ==
LOC: INOR 08:08 → 5 12:54
PROVIDERS: ADMIT Orthopaedic Surgery; ATTEND Orthopaedic Surgery
PROC: 3E0F73Z Introduction of Anti-inflammatory into Respiratory Tract, Via Natural or Artificial Opening (ICD-10-PCS; 2018-04-17)
PROC: 0SR902A Replacement of Right Hip Joint with Metal on Polyethylene Synthetic Substitute, Uncemented, Open Approach (ICD-10-PCS; principal; 2018-04-17 10:00)
DX: M16.11 Unilateral primary osteoarthritis, right hip (principal); E11.9 Type 2 diabetes mellitus without complications; I10 Essential (primary) hypertension; Z79.899 Other long term (current) drug therapy; Z90.710 Acquired absence of both cervix and uterus; Z90.49 Acquired absence of other specified parts of digestive tract
CPT/HCPCS: 01214; 36415; 72170; 80048; 81001; 82947; 82962; 84132; 85027; 86850; 86900; 86901; 88304; 88311; 94640; 94799; C1713; C1776; J0131; J0330; J0690; J1100; J1170; J1741; J1815; J2250; J2270; J2405; J2704; J3010; J3370; J3490; J7050; J7060; J7120

== ENCOUNTER 2019-12-07 12:05 | Emergency (ER) | payer MEDICARE ==
--- NOTE | 2019-12-07 12:32 | RADIOLOGY REPORT (SQ) ---
EXAM DESCRIPTION: CT HEAD WITHOUT IMAGES COMPLETED DATE/TIME: 12/07/2019 12:15 pm REASON FOR STUDY: Unresponsive COMPARISON: 09/17/2017 CT brain TECHNIQUE: Axial images acquired through the brain without intravenous contrast. Images reviewed wi th bone, brain and subdural windows. Additional sagittal and coronal reconstructions were generated. Images stored on PACS. All CT scanners at this facility use dose modulation, iterative reconstruction, and/or weight based d osing when appropriate to reduce radiation dose to as low as reasonably achievable (ALARA). [facility]: Dose Right [facility]: CareDose [facility]: Dose Right [facility]: Teradose 4D [facility]: [employer] RADIATION DOSE: 53mGy. LIMITATIONS: None. FINDINGS: VENTRICLES: Normal size and contour. CEREBRUM: No masses. No hemorrhage. No midline shift. No evidence for acute infarction. Normal gra y/white matter differentiation. No areas of low density in the white matter. CEREBELLUM: No masses. No hemorrhage. No alteration of density. No evidence for acute infarction. EXTRAAXIAL SPACES: No fluid collections. No masses. ORBITS AND GLOBE: No intra- or extraconal masses. Normal contour of globe without masses. CALVARIUM: No fracture. PARANASAL SINUSES: No fluid or mucosal thickening. SOFT TISSUES: No mass or hematoma. OTHER: Nasal airway in place. IMPRESSION: NORMAL BRAIN CT WITHOUT CONTRAST. EVIDENCE OF ACUTE STROKE: NO. COMMENT: Quality ID # [id number]: Final reports with documentation of one or more dose reduction techniques (e.g., Automated exposure control, adjustment of the mA and/or kV according to patient size, use of iterative reconstruction technique) TECHNICAL DOCUMENTATION: JOB ID: [id number] 2010 [employer]- All Rights Reserved Reading location - IP/workstation name: [email or web address]
[2019-12-07 13:00] LABS: ABSOLUTE LYMPHOCYTES (AUTO) 1.3 10^3/uL (0.5-4.7); ABSOLUTE MONOCYTES (AUTO) 0.6 10^3/uL (0.1-1.4); ABSOLUTE NEUT (AUTO) 6.1 10^3/uL (1.7-8.2); BASOPHILS % (AUTO) 0.4 % (0-2); EOSINOPHILS % (AUTO) 0.1 % (0-6); HEMATOCRIT 46.1 % (36.0-47.0); HEMOGLOBIN 15.6 g/dL (12.0-15.5); LYMPHOCYTES % (AUTO) 16.4 % (13-45); MEAN CORPUSCULAR HEMOGLOBIN 31.5 pg (27.0-33.4); MEAN CORPUSCULAR HGB CONC 33.8 g/dL (32.0-36.0); MEAN CORPUSCULAR VOLUME 93 fl (80-97); MONOCYTES % (AUTO) 7.7 % (3-13); PLATELET COUNT 164 10^3/uL (150-450); RED BLOOD COUNT 4.96 10^6/uL (3.72-5.28); RED CELL DISTRIBUTION WIDTH 13.8 % (11.5-14.0); SEGMENTED NEUTROPHILS % (AUTO) 75.4 % (42-78); TOTAL CELLS COUNTED % (AUTO) 100 %; WHITE BLOOD COUNT 8.1 10^3/uL (4.0-10.5)
--- NOTE | 2019-12-07 13:07 | RADIOLOGY REPORT (SQ) ---
EXAM DESCRIPTION: CHEST SINGLE VIEW IMAGES COMPLETED DATE/TIME: 12/07/2019 12:46 pm REASON FOR STUDY: Unresponsive COMPARISON: PA and lateral views of the chest from 04/12/2018. EXAM PARAMETERS: NUMBER OF VIEWS: One view. TECHNIQUE: An AP view of the chest was obtained. RADIATION DOSE: NA LIMITATIONS: None. FINDINGS: LUNGS AND PLEURA: Calcified granuloma in the right lower lobe. There is no consolidation, pleural effusion or pneumothorax. MEDIASTINUM AND HILAR STRUCTURES: No mediastinal or hilar contour abnormality. HEART AND VASCULAR STRUCTURES: The cardiac silhouette and pulmonary vasculature are within normal baker its. BONES: No acute findings. HARDWARE: None in the chest. OTHER: No other finding. IMPRESSION: No acute cardiopulmonary process. TECHNICAL DOCUMENTATION: JOB ID: [id number] 2010 [employer]- All Rights Reserved Reading location - IP/workstation name: [email or web address]
[2019-12-07 13:16] LABS: VENOUS BLOOD BASE EXCESS -4.7 mmol/L; VENOUS BLOOD HCO3 22.2 mmol/L (20-32); VENOUS BLOOD PCO2 47.5 mmHg (35-63); VENOUS BLOOD PH 7.29 (7.30-7.42)
[2019-12-07 13:17] LABS: APPEARANCE,URINE SLIGHTLY-CLOUDY; BILIRUBIN,URINE NEGATIVE (NEGATIVE); COLOR,URINE YELLOW; GLUCOSE, URINE NEGATIVE (NEGATIVE); KETONES,URINE NEGATIVE (NEGATIVE); LEUKOCYTE ESTERASE,URINE NEGATIVE (NEGATIVE); NITRITE,URINE POSITIVE (NEGATIVE); PROTEIN,URINE NEGATIVE (NEGATIVE); URINE SPECIFIC GRAVITY 1.015; UROBILINOGEN,URINE NEGATIVE mg/dL (<2.0)
[2019-12-07 13:22] LABS: ALBUMIN 4.6 g/dL (3.5-5.0); ALKALINE PHOSPHATASE 176 U/L (38-126); ANION GAP 14 (5-19); ASPARTATE AMINO TRANSFERASE 24 U/L (14-36); BILIRUBIN,DIRECT 0.4 mg/dL (0.0-0.4); BILIRUBIN,TOTAL 0.9 mg/dL (0.2-1.3); BLOOD UREA NITROGEN 17 mg/dL (7-20); CALCIUM 9.8 mg/dL (8.4-10.2); CARBON DIOXIDE 21 mmol/L (22-30); CHLORIDE 105 mmol/L (98-107); CREATINE KINASE 58 U/L (30-135); GLUCOSE 152 mg/dL (75-110); POTASSIUM 4.5 mmol/L (3.6-5.0); TOTAL PROTEIN 8.2 g/dL (6.3-8.2)
[2019-12-07 13:23] LABS: ACETAMINOPHEN < 10 ug/mL (10-30); SALICYLATE < 1.0 mg/dL (2.0-20.0)
[2019-12-07 13:32] LABS: URINE AMPHETAMINES SCREEN NEGATIVE; URINE BARBITURATES SCREEN NEGATIVE; URINE COCAINE SCREEN NEGATIVE; URINE MARIJUANA (THC) SCREEN NEGATIVE; URINE METHADONE SCREEN NEGATIVE; URINE PHENCYCLIDINE SCREEN NEGATIVE
[2019-12-07 13:35] LABS: URINE BENZODIAZEPINES SCREEN UNCONFIRMED POSITIVE
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
[2019-12-07] MEDS ORDERED: NALOXONE HCL INJ/PF 0.4 MG/1 ML SDV IV ONE (15:14)
[2019-12-07] MEDS ORDERED: ACETAMINOPHEN 325 MG TABLET PO ONE (16:50)
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
[2019-12-07] MEDS ORDERED: CEFAZOLIN 1 GM/D5W RTU 1 GM/50 ML RTUPB IV ONE (19:33)
--- NOTE | 2019-12-07 21:02 | EKG REPORT ---
SEVERITY:- BORDERLINE ECG - SINUS OR ECTOPIC ATRIAL RHYTHM SHORT OR INTERVAL, ACCELERATED AV CONDUCTION : Confirmed by: Nahum Ventura 07-Dec-2019 21:00:39
[2019-12-07] MEDS ORDERED: IBUPROFEN 600 MG TABLET PO ONE (21:33)
[2019-12-08] MEDS ORDERED: IBUPROFEN 600 MG TABLET PO ONE (07:01)
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
--- NOTE | 2019-12-08 13:28 | ER Document Report ---
Doctor's Note Notes: 12/08/19 13:10 Patient's vital signs and previous labs, diagnostic images reviewed. Reviewed mental health notes, nurse's notes and previous providers notes. VSS. Pt is in no distress at this time. Denies any SI or HI. General: A&Ox3. Answers questions appropriately. Heart: RRR Lungs: CTAB Psych: Flat affect A/P: Continue monitoring and rec's per MH. Normal diet will likely discharge home.
[2019-12-08 14:01] VITALS: BP 150/93
== END 2019-12-08 14:01 | disposition home or self-care (01) ==
LOC: ER 12:05
DX: T50.904A Poisoning by unspecified drugs, medicaments and biological substances, undetermined, initial encounter (principal); N39.0 Urinary tract infection, site not specified; R41.82 Altered mental status, unspecified; R06.03 Acute respiratory distress; I10 Essential (primary) hypertension; E11.9 Type 2 diabetes mellitus without complications; Z72.0 Tobacco use; Z88.0 Allergy status to penicillin
CPT/HCPCS: 93005; 99285; 51702; 96375; 96365; 36415; 87040; 82962; 82550; 80307 ×3; 85025; 80053; 81001; 84484; 85379; 82803; 71045; 70450; 93010; A9270 ×3; J0690; J2310